=== PATIENT | male | born 1950 | race Caucasian/White ===

== ENCOUNTER 2016-09-01 15:56 | Emergency (ER) | payer MEDICARE, MEDICAID ==
[2016-09-01] MEDS ORDERED: SULFAMETH/TRIMETH DS 800/160 MG TABLET PO STA (16:35)
[2016-09-01] MEDS ORDERED: MUPIROCIN 2% OINT 1 GM TOP STA (16:37)
[2016-09-01] MEDS ORDERED: SULFAMETH/TRIMETH DS 800/160 MG TABLET PO ONE (17:10)
[2016-09-01] MEDS ORDERED: MUPIROCIN 2% OINT 1 GM ONE (17:10)
== END 2016-09-01 18:26 | disposition home or self-care (01) ==
DX: S80.12XA Contusion of left lower leg, initial encounter (principal); W05.0XXA Fall from non-moving wheelchair, initial encounter; Y92.019 Unspecified place in single-family (private) house as the place of occurrence of the external cause; L03.116 Cellulitis of left lower limb; I73.9 Peripheral vascular disease, unspecified; J44.9 Chronic obstructive pulmonary disease, unspecified; Z98.84 Bariatric surgery status; F17.200 Nicotine dependence, unspecified, uncomplicated
CPT/HCPCS: 73610; 73630; 81003; 87070; 87077; 87181; 87205; 99283; A9270

== ENCOUNTER 2016-09-14 10:48 | Outpatient (CLI) | payer MEDICARE, MEDICAID | END 2016-09-14 10:49 | disposition home or self-care (01) | DX: Z11.59 Encounter for screening for other viral diseases (principal) ==

== ENCOUNTER 2016-10-10 13:15 | Outpatient (CLI) | payer MEDICARE, MEDICAID | END 2016-10-10 13:16 | disposition critical access hospital (66) | LOC: EMS 13:15 | PROVIDERS: ATTEND Surgery | DX: R41.82 Altered mental status, unspecified (principal) | CPT/HCPCS: A0425; A0429 ==

== ENCOUNTER 2016-10-10 13:59 | Inpatient (IN) | payer MEDICARE, MEDICAID ==
[2016-10-10] MEDS ORDERED: SODIUM CHLORIDE 0.9% 1,000 ML IV ONE (14:10)
[2016-10-10] MEDS ORDERED: fentaNYL 100 MCG/2 ML VIAL IVP STA (14:10)
--- NOTE | 2016-10-10 14:15 | ED Physician Documentation ---
PD HPI FOCAL NEURO - Stated complaint Stated Complaint: AMS - Chief complaint Chief Complaint: Neuro - History obtained from History obtained from: EMS - History of Present Illness Timing - onset: Other (66-year-old gentleman presents by ambulance for altered mental status. He is unable to give any history. Per the chart he has a history of tonsillar cancer and referral vascular disease, he is a smoker, maintained on baclofen, gabapentin. Seen about a month ago for a foot infection and placed on antibiotics, at that time he was documented to be alert and oriented x3 per report he lives in a trailer and complained of back pain to his neighbors yesterday. Today he was just screaming and the ambulance was summoned. He was noted to have a blood sugar of 53 and administered D50 which brought his blood sugar up to nearly 300 without change in neurologic status.) Review of Systems Unable to obtain: Confused PD PAST MEDICAL HISTORY - Past Medical History Cardiovascular: Peripheral Vascular Disease Respiratory: COPD Neuro: None Endocrine/Autoimmune: None GI: Other : Frequency HEENT: Other Psych: Depression, Anxiety Musculoskeletal: None Derm: None - Past Surgical History Past Surgical History: Yes General: Gastric surgery Ortho: Spine surgery, Amputation HEENT: Other - Present Medications Home Medications: Ambulatory Orders Medication Instructions Recorded Confirmed Baclofen 10 mg PO TID PRN 03/14/13 10/10/16 Atorvastatin [Lipitor] 10 mg ORAL DAILY 11/17/14 03/20/15 Gabapentin 300 mg PO TID 11/17/14 10/10/16 Levothyroxine [Synthroid] 75 mcg PO QDAC 11/17/14 03/20/15 Lisinopril [Zestril] 10 mg ORAL DAILY 11/17/14 03/20/15 Ibuprofen 400 mg PO TID 03/20/15 10/10/16 Citalopram [CeleXA] 20 mg PO DAILY 09/01/16 10/10/16 Famotidine [Pepcid] 20 mg DAILY 10/10/16 10/10/16 Omeprazole 20 mg DAILY 10/10/16 10/10/16 Tiotropium [place] [Spiriva] 10/10/16 - Allergies Allergies/Adverse Reactions: Allergies Allergy/AdvReac Type Severity Reaction Status Date / Time No Known Drug Allergies Allergy Verified 11/17/14 17:47 - Social History Does the pt smoke?: Yes Smoking Status: Current every day smoker Does the pt drink ETOH?: Yes Does the pt have substance abuse?: Yes - Immunizations Immunizations are current?: Yes PD ED PE NORMAL - Vitals Vital signs reviewed: Yes - General General: Other (He is alert and makes eye contact but is nonverbal with the exception of screamin "ow." He does not follow commands. He is thin and has a right below-knee amputation. The left foot is cold with a small ulcer on the top of it at doesn't appear acutely infected. Asked the R.N. to see if she could Doppler pulses in it.) - HEENT HEENT: PERRL, Other (Abnormality of the right posterior oropharynx consistent with prior cancer.) - Neck Neck: Supple, no meningeal sign, No bony TTP - Cardiac Cardiac: RRR, No murmur - Respiratory Respiratory: No respiratory distress, Other (Rhonchorous throughout with a wet cough) - Abdomen Abdomen: Soft, Non tender, Other (Left upper quadrant lesion from prior G-tube) - Back Back: No CVA TTP, No spinal TTP - Derm Derm: Normal color, Warm and dry - Extremities Extremities: No deformity, No tenderness to palpate - Neuro Neuro: Other (Screaming, non-consolable, seems to move all 4 extremities.) Results - Vitals Vitals: Vital Signs - 24 hr 10/10/16 10/10/16 10/10/16 14:02 14:13 14:14 Temperature 36.8 C Heart Rate 94 Respiratory 20 Rate Blood Pressure 153/91 H 153/91 H O2 Saturation 93 10/10/16 10/10/16 10/10/16 14:57 15:37 16:08 Temperature Heart Rate 92 74 83 Respiratory 20 18 20 Rate Blood Pressure 119/73 113/86 H 128/73 O2 Saturation 98 95 95 10/10/16 16:51 Temperature Heart Rate 85 Respiratory 16 Rate Blood Pressure 124/77 O2 Saturation 93 Oxygen O2 Source Simple Mask - EKG (time done) 1429 Rate: Rate (enter#) (71) Rhythm: NSR [place]: Normal Intervals: Normal [place] QRS: Normal Ischemia: Normal ST segments Computer interpretation: Agree with computer - Labs Labs: Laboratory Tests 10/10/16 10/10/16 10/10/16 14:40 14:40 14:40 WBC 4.0 L RBC 4.29 L Hgb 14.1 Hct 42.3 MCV 98.7 H MCH 32.8 H MCHC 33.2 RDW 16.2 H Plt Count 239 MPV 7.2 L Neut # 2.7 Lymph # 0.6 L [place] # 0.6 Eos # 0.0 Baso # 0.1 Absolute Nucleated RBC 0.00 Nucleated RBCs 0.0 PT 9.8 L INR 0.9 APTT 26.1 Sodium 137 Potassium 3.8 Chloride 102 Carbon Dioxide 23 Anion Gap 12.0 BUN 27 H Creatinine 1.2 Estimated GFR (MDRD) 61 L Glucose 121 H Calcium 8.8 Magnesium 1.2 L Total Bilirubin 0.8 AST 16 ALT < 10 L Alkaline Phosphatase 69 Ammonia Total Creatine Kinase 101 CK-MB (CK-2) Troponin I Total Protein 7.7 Albumin 3.6 Globulin 4.1 Albumin/Globulin Ratio 0.9 L Lipase 41 TSH Thyroxine (T4) Free T3 pg/mL Cortisol Urine Color Urine Clarity Urine pH Ur Specific [place] Urine Protein Urine Glucose (UA) Urine Ketones Urine Occult Blood Urine Nitrite Urine Bilirubin Urine Urobilinogen Ur Leukocyte Esterase Ur Microscopic Review Urine Culture Comments Salicylates < 6.0 Urine Opiates Screen Ur Oxycodone Screen Urine Methadone Screen Ur Propoxyphene Screen Acetaminophen < 10 L Ur Barbiturates Screen Ur Tricyclics Screen Ur Phencyclidine Scrn Ur Amphetamine Screen U Methamphetamines Scrn U Benzodiazepines Scrn Urine Cocaine Screen U Cannabinoids Screen Ethyl Alcohol < 5.0 10/10/16 10/10/16 10/10/16 14:40 14:40 14:40 WBC RBC Hgb Hct MCV MCH MCHC RDW Plt Count MPV Neut # Lymph # [place] # Eos # Baso # Absolute Nucleated RBC Nucleated RBCs PT INR APTT Sodium Potassium Chloride Carbon Dioxide Anion Gap BUN Creatinine Estimated GFR (MDRD) Glucose Calcium Magnesium Total Bilirubin AST ALT Alkaline Phosphatase Ammonia Total Creatine Kinase CK-MB (CK-2) 5.2 Troponin I < 0.04 Total Protein Albumin Globulin Albumin/Globulin Ratio Lipase TSH 118.00 H Thyroxine (T4) 3.75 L Free T3 pg/mL Cortisol 19.2 Urine Color Urine Clarity Urine pH Ur Specific [place] Urine Protein Urine Glucose (UA) Urine Ketones Urine Occult Blood Urine Nitrite Urine Bilirubin Urine Urobilinogen Ur Leukocyte Esterase Ur Microscopic Review Urine Culture Comments Salicylates Urine Opiates Screen Ur Oxycodone Screen Urine Methadone Screen Ur Propoxyphene Screen Acetaminophen Ur Barbiturates Screen Ur Tricyclics Screen Ur Phencyclidine Scrn Ur Amphetamine Screen U Methamphetamines Scrn U Benzodiazepines Scrn Urine Cocaine Screen U Cannabinoids Screen Ethyl Alcohol 10/10/16 10/10/16 10/10/16 14:40 15:19 15:30 WBC RBC Hgb Hct MCV MCH MCHC RDW Plt Count MPV Neut # Lymph # [place] # Eos # Baso # Absolute Nucleated RBC Nucleated RBCs PT INR APTT Sodium Potassium Chloride Carbon Dioxide Anion Gap BUN Creatinine Estimated GFR (MDRD) Glucose Calcium Magnesium Total Bilirubin AST ALT Alkaline Phosphatase Ammonia 9.0 Total Creatine Kinase CK-MB (CK-2) Troponin I Total Protein Albumin Globulin Albumin/Globulin Ratio Lipase TSH Thyroxine (T4) Free T3 pg/mL 2.26 L Cortisol Urine Color YELLOW Urine Clarity CLEAR Urine pH 5.5 Ur Specific [place] 1.025 Urine Protein NEGATIVE Urine Glucose (UA) 100 H Urine Ketones TRACE Urine Occult Blood NEGATIVE Urine Nitrite NEGATIVE Urine Bilirubin NEGATIVE Urine Urobilinogen 0.2 (NORMAL) Ur Leukocyte Esterase NEGATIVE Ur Microscopic Review NOT INDICATED Urine Culture Comments NOT INDICATED Salicylates Urine Opiates Screen NEGATIVE Ur Oxycodone Screen NEGATIVE Urine Methadone Screen NEGATIVE Ur Propoxyphene Screen NEGATIVE Acetaminophen Ur Barbiturates Screen NEGATIVE Ur Tricyclics Screen NEGATIVE Ur Phencyclidine Scrn NEGATIVE Ur Amphetamine Screen NEGATIVE U Methamphetamines Scrn NEGATIVE U Benzodiazepines Scrn NEGATIVE Urine Cocaine Screen NEGATIVE U Cannabinoids Screen POSITIVE H Ethyl Alcohol - Rads (name of study) CT Head Radiology: EMP read contemporaneously (NAD) 1v Chest Radiology: EMP read contemporaneously (upper lobe infiltrates on chronic lung dz ) Procedures - Lumbar Puncture Position: Laying left side Location: Midline approach, Other Other: Sterile prep and drape, Patient tolerated well, Other (unsuccessful) PD MEDICAL DECISION MAKING - ED course ED course: 66-year-old gentleman presents with altered mental status of unclear cause, his vital signs are unremarkable. Required divided doses of medications for anxiolysis and cooperation. He does have pneumonia. He was cultured up. An LP was attempted, needed a couple doses of ketamine 2 help with that, the LP was unsuccessful. However there is no obvious clinical evidence of meningitis other than altered mental status. He was given Rocephin and vancomycin after blood cultures for pneumonia. Call to Dr. Silveira for admission at 445 p.[address]. [address] case [address] Dr. Silveira at 450 p.m., note made of very high TSH, T4 free T3 added on. After discussion with the hospitalist he is given 25 mcg of Synthroid IV, also his blood sugar was dropping again and started on D5. - Critical Care Time(min): 45 Time Includes: Direct patient care, Review records, Reassess patient, Document care, Coordinate care, Medical consult Data interpretation: Labs, Pulse ox Procedures included in critical care time: Peripheral IV Procedures excluded from critical care time: EKG Departure - Departure Disposition: [address] [facility] [facility] DC/Xfer Clinical Impression: Hypoglycemia Altered mental status Qualifiers: Altered mental status type: delirium Qualified Code(s): R41.0 - Disorientation , unspecified Hypothyroid Qualifiers: Hypothyroidism type: unspecified Qualified Code(s): E03.9 - Hypothyroidism, unspecified Pneumonia Qualifiers: Pneumonia type: due to unspecified organism Laterality: bilateral Lung location : upper lobe of lung Qualified Code(s): J18.9 - Pneumonia, unspecified organism Condition: Serious Discharge Date/Time: 10/10/16 18:09
[2016-10-10] MEDS ORDERED: fentaNYL 100 MCG/2 ML VIAL ONE (14:24)
[2016-10-10] MEDS ORDERED: LORazepam 2 MG/ML SYRINGE IVP STA ×2 (14:52→15:05)
[2016-10-10] MEDS ORDERED: LORazepam 2 MG/ML SYRINGE ONE ×2 (14:54→15:06)
[2016-10-10 14:57] LABS: BASOPHILS # (AUTO) 0.1 10^3/uL (0.0-0.1); BASOPHILS % (AUTO) 1.4 %; HCT - HEMATOCRIT 42.3 % (42.0-52.0); HGB - HEMOGLOBIN 14.1 g/dL (14.0-18.0); LYMPHOCYTES # (AUTO) 0.6 10^3/uL (1.5-3.5); LYMPHOCYTES % (AUTO) 14.2 %; MEAN CORPUSCULAR HEMOGLOBIN 32.8 pg (27.0-31.0); MEAN CORPUSCULAR HGB CONC 33.2 g/dL (32.0-36.0); MEAN CORPUSCULAR VOLUME 98.7 fL (80.0-94.0); MEAN PLATELET VOLUME 7.2 fL (7.4-11.4); MONOCYTES # (AUTO) 0.6 10^3/uL (0.0-1.0); MONOCYTES % (AUTO) 15.9 %; NEUTROPHILS # (AUTO) 2.7 10^3/uL (1.5-6.6); NEUTROPHILS % (AUTO) 67.5 %; RED BLOOD COUNT 4.29 10^6/uL (4.70-6.10); RED CELL DISTRIBUTION WIDTH 16.2 % (12.0-15.0)
[2016-10-10 15:10] LABS: INR 0.9 (0.8-1.2); PT - PROTHROMBIN TIME 9.8 secs (9.9-12.6)
[2016-10-10 15:14] LABS: ALBUMIN/GLOBULIN RATIO 0.9 (1.0-2.2); BILIRUBIN,TOTAL 0.8 mg/dL (0.2-1.0); BUN - BLOOD UREA NITROGEN 27 mg/dL (6-20); CALCIUM 8.8 mg/dL (8.5-10.3); CARBON DIOXIDE - CO2 23 mmol/L (21-32); CHLORIDE 102 mmol/L (101-111); CREATININE 1.2 mg/dL (0.6-1.2); GFR - MDRD 61 (>89); GLUCOSE 121 mg/dL (70-100); LIPASE 41 U/L (22-51); MAGNESIUM 1.2 mg/dL (1.7-2.8); POTASSIUM 3.8 mmol/L (3.5-5.0); SALICYLATE < 6.0 mg/dL; SODIUM 137 mmol/L (135-145); TOTAL PROTEIN 7.7 g/dL (6.7-8.2)
[2016-10-10 15:17] LABS: PARTIAL THROMBOPLASTIN TIME 26.1 secs (24.9-33.3)
[2016-10-10 15:18] LABS: ACETAMINOPHEN < 10 ug/mL (10-30); CREATINE KINASE MB 5.2 ng/mL (0.6-6.3); TROPONIN I < 0.04 ng/mL (<0.49)
[2016-10-10 15:45] LABS: BILIRUBIN,URINE NEGATIVE (NEGATIVE); PH,URINE 5.5 PH (5.0-7.5)
--- NOTE | 2016-10-10 15:45 | XRAY Preliminary Report ---
Exam: XR Chest 1 View IMPRESSION: Patchy upper lobe infiltrates, superimposed upon emphysema. [facility] SITE ID: [id number]
[2016-10-10 15:46] LABS: UA CHARGE (STRIP ONLY) YES; UR CULTURE IF IND NOT INDICATED
--- NOTE | 2016-10-10 15:47 | XRAY Report ---
EXAM: CHEST RADIOGRAPHY EXAM DATE: 10/10/2016 03:30 PM. CLINICAL HISTORY: Cough. COMPARISON: 11/02/2014. TECHNIQUE: 1 view. FINDINGS: Lungs/Pleura: Emphysema is again noted. There are patchy upper lobe infiltrates, new from previous. Mediastinum: Within exam limitations, cardiomediastinal contour is normal. Other: None. IMPRESSION: Patchy upper lobe infiltrates, superimposed upon emphysema. [facility] Referring Provider Line: [phone] SITE ID: [id number]
[2016-10-10] MEDS ORDERED: KETAMINE 500 MG/10 ML VIAL ONE ×2 (16:02→16:12)
[2016-10-10] MEDS: KETAMINE 500 MG/10 ML VIAL IVP STA ×2 (16:05→16:16)
[2016-10-10] MEDS ORDERED: VANCOMYCIN INJ 1 GM in SODIUM CHLORIDE 0.9% 250 ML IV STA (16:33)
[2016-10-10] MEDS ORDERED: cefTRIAXone 2 GM in SODIUM CHLORIDE 0.9% MINIBAG 100 ML IV STA (16:33)
[2016-10-10] MEDS ORDERED: cefTRIAXone 2 GM VIAL ONE (16:38)
[2016-10-10] MEDS ORDERED: SODIUM CHLORIDE 0.9% MINIBAG 100 ML IV ONE (16:38)
--- NOTE | 2016-10-10 16:48 | CT Preliminary Report ---
Exam: CT Head W/O IMPRESSION: Normal head CT. [facility] SITE ID: [id number]
--- NOTE | 2016-10-10 16:50 | CT Report ---
EXAM: CT HEAD EXAM DATE: 10/10/2016 03:47 PM. CLINICAL HISTORY: Altered mental status. COMPARISON: 11/02/2014. TECHNIQUE: Multiaxial CT images were obtained from the foramen magnum to the vertex. IV contrast: Non e. Reformats: Coronal. In accordance with CT protocol optimization, one or more of the following dose reduction techniques w ere utilized for this exam: automated exposure control, adjustment of mA and/or KV based on patient s ize, or use of iterative reconstructive technique. FINDINGS: Parenchyma: No intraparenchymal hemorrhage. No evidence of mass, midline shift, or CT findings of inf arction. Yan-white differentiation is distinct. Extraaxial Spaces: Normal for age. No subdural or epidural collections identified. Ventricles: Normal in size and position. Sinuses: Imaged paranasal sinuses, orbits, and mastoids show no significant abnormality. Bones: No evidence of fracture or calvarial defect. Other: None. IMPRESSION: Normal head CT. [facility] Referring Provider Line: [phone] SITE ID: [id number]
[2016-10-10] MEDS ORDERED: LEVOTHYROXINE 100 MCG VIAL IVP STA (16:52)
[2016-10-10] MEDS ORDERED: DEXTROSE 5%-0.45% NACL 1,000 ML IV ONE (16:52)
[2016-10-10] MEDS ORDERED: OLANZapine 10 MG VIAL IM STA (16:59)
[2016-10-10] MEDS ORDERED: OLANZapine 10 MG VIAL IM ONE (17:03)
[2016-10-10] MEDS ORDERED: WATER FOR INJECTION,STERILE 10 ML ONE (17:04)
[2016-10-10] MEDS ORDERED: HYDROmorphone 1 MG/ML SYRINGE IVP PRN (17:07)
[2016-10-10] MEDS ORDERED: cefTRIAXone 500 MG VIAL IVP STA (17:07)
[2016-10-10] MEDS ORDERED: ONDANSETRON 4 MG/2 ML VIAL IVP PRN (17:07)
[2016-10-10] MEDS ORDERED: NICOTINE 21 MG PATCH TOP SCH (17:07)
[2016-10-10] MEDS ORDERED: SODIUM CHLORIDE 0.9% 250 ML IV ONE (17:11)
[2016-10-10] MEDS ORDERED: VANCOMYCIN 1 GM VIAL ONE (17:11)
[2016-10-10 17:24] LABS: CORTISOL 19.2 ug/dL
[2016-10-10] MEDS ORDERED: cefTRIAXone 2 GM in SODIUM CHLORIDE 0.9% MINIBAG 100 ML IV SCH (18:00)
[2016-10-10] MEDS ORDERED: VANCOMYCIN PER PHARMACY 1 GM in SODIUM CHLORIDE 0.9% 250 ML IV SCH (18:00)
[2016-10-10] MEDS: PANTOPRAZOLE 40 MG VIAL IVP SCH (19:54)
[2016-10-10] MEDS: D5NS W/20 MEQ KCL 1,000 ML IV SCH (19:58)
[2016-10-10] MEDS: SODIUM CHLORIDE FLUSH 0.9% 10 ML SYRINGE IVP SCH (20:02)
[2016-10-10] MEDS: MAGNESIUM SULFATE 2 GRAM 50 ML IV SCH ×2 (20:32→21:21)
[2016-10-10] MEDS ORDERED: SODIUM CHLORIDE 0.9% 500 ML IV ONE (20:56)
[2016-10-10] MEDS: KETOROLAC 15 MG/ML VIAL IVP PRN (23:43)
[2016-10-11] MEDS: HYDROmorphone 1 MG/ML SYRINGE IVP PRN ×5 (00:58→17:12)
[2016-10-11 05:12] LABS: BASOPHILS % (AUTO) 0.4 %; EOSINOPHILS # (AUTO) 0.1 10^3/uL (0.0-0.7); EOSINOPHILS % (AUTO) 0.6 %; HCT - HEMATOCRIT 44.1 % (42.0-52.0); HGB - HEMOGLOBIN 14.2 g/dL (14.0-18.0); LYMPHOCYTES # (AUTO) 0.6 10^3/uL (1.5-3.5); LYMPHOCYTES % (AUTO) 5.5 %; MEAN CORPUSCULAR HEMOGLOBIN 32.5 pg (27.0-31.0); MEAN CORPUSCULAR HGB CONC 32.2 g/dL (32.0-36.0); MEAN PLATELET VOLUME 7.2 fL (7.4-11.4); MONOCYTES # (AUTO) 1.2 10^3/uL (0.0-1.0); MONOCYTES % (AUTO) 11.6 %; NEUTROPHILS # (AUTO) 8.5 10^3/uL (1.5-6.6); NEUTROPHILS % (AUTO) 81.9 %; RED BLOOD COUNT 4.37 10^6/uL (4.70-6.10); RED CELL DISTRIBUTION WIDTH 16.7 % (12.0-15.0); UNCORRECTED WHITE BLOOD COUNT 10.4 x10^3/uL; WHITE BLOOD COUNT 10.4 x10^3/uL (4.8-10.8)
[2016-10-11 05:21] LABS: ALBUMIN/GLOBULIN RATIO 0.8 (1.0-2.2); BILIRUBIN,TOTAL 0.5 mg/dL (0.2-1.0); BUN - BLOOD UREA NITROGEN 24 mg/dL (6-20); CALCIUM 8.4 mg/dL (8.5-10.3); CARBON DIOXIDE - CO2 21 mmol/L (21-32); CHLORIDE 111 mmol/L (101-111); CREATININE 1.1 mg/dL (0.6-1.2); GFR - MDRD 67 (>89); GLUCOSE 113 mg/dL (70-100); MAGNESIUM 2.3 mg/dL (1.7-2.8); PHOSPHORUS 3.3 mg/dL (2.5-4.6); SODIUM 139 mmol/L (135-145)
[2016-10-11] MEDS: D5NS W/20 MEQ KCL 1,000 ML IV SCH ×2 (05:54→14:23)
[2016-10-11] MEDS: SODIUM CHLORIDE FLUSH 0.9% 10 ML SYRINGE IVP SCH ×3 (05:56→20:47)
[2016-10-11] MEDS: PANTOPRAZOLE 40 MG VIAL IVP SCH (06:08)
[2016-10-11] MEDS: LEVOTHYROXINE 100 MCG VIAL IVP SCH (06:14)
[2016-10-11] MEDS ORDERED: SODIUM CHLORIDE 0.9% 1,000 ML IV ONE ×2 (06:37→15:02)
--- NOTE | 2016-10-11 07:33 | HISTORY & PHYSICAL EXAMINATION ---
DATE OF ADMISSION: 10/10/2016 PRIMARY CARE PHYSICIAN: PAULA Willoughby CHIEF COMPLAINT: Altered mental status. IDENTIFYING INFORMATION: The patient is a 66-year-old gentleman who is unable to give any history, as he is moaning or screaming and unresponsive. The patient 's history is obtained from the handoff from the emergency department physician , Dr. Almonte, as well as personal review of past medical records and the data collected during this visit. The patient's examination was also used in the evaluation of this person in preparation of this document. The patient's history is that he was seen yesterday, seemed to be not having difficulty, was interactive. He was heard to be yelling today and found at home not responding, and he was brought in by EMS after evaluation. REVIEW OF SYSTEMS: Unable to obtain. PAST MEDICAL HISTORY 1. He has peripheral vascular disease. 2. COPD. 3. Tonsillar cancer. 4. Depression. 5. Anxiety. 6. Hyperlipidemia. 7. Hypothyroidism. 8. Gastroesophageal reflux disease. PAST SURGICAL HISTORY 1. Gastric surgery. 2. Spine surgery. 3. AKA of right leg. 4. Neck surgery. 5. Tympanic membrane replacement. 6. PEG tube. ALLERGIES: NONE KNOWN. MEDICATIONS 1. Baclofen 10 mg 3 times a day. 2. Lipitor 10 mg a day. 3. Gabapentin 300 mg a day. 4. Levoxyl 75 mcg a day. 5. Zestril 10 mg a day. 6. Ibuprofen 10 mg t.i.d. 7. Celexa 20 mg a day. 8. Pepcid 20 mg a day. 9. Omeprazole 20 mg a day. 10. Spiriva 18 mcg once a day. PERSONAL/SOCIAL HISTORY: He lives alone. Very sketchy details. PHYSICAL EXAMINATION VITAL SIGNS: 36.8, 94, 20, 153/91, 93% nasal cannula. GENERAL: The patient's eyes are closed. He does not open his eyes. He at times when his name is called, stops yelling or saying "ow" incessantly. CONSTITUTIONAL: He is extremely underweight, has very little subcutaneous tissue. The patient moves his extremities, but there is no response such as response to physical stimuli to locate or protect himself. EYES: Unable to assess EOM. There is no icterus. MOUTH AND THROAT: Poorly seen. Appears to be dry mucous membranes and very poor dentition. NECK: No lymphadenopathy, no thyromegaly, no tracheal deviation, or JVD noted. CHEST WALL: Very emaciated appearing, also of muscle and subcutaneous tissue, but symmetric. HEART: Sinus rhythm, no murmur, rubs, clicks heard. LUNGS: Appear clear. ABDOMEN: Flat. No pain response, but obviously with his condition, unable to further assess. RECTAL/GENITAL: Not done. EXTREMITIES: The patient has the AKA noted below. He has coolness of the left lower extremity, but there are pulses recorded Doppler. LABORATORY DATA: White count of 4.0, 14 and 42 hemoglobin and hematocrit, platelets are 239, he has INR 0.9. His PTT is 26. Sodium is 136, potassium 3.8, chloride 102, CO2 of 23, BUN 27, creatinine is 1.2. The patient's glucose 121, his calcium is 8.8. Normal liver enzymes. He has albumin of 3.6. The patient's aspirin level less than 6.0. Tylenol level less than 10. Alcohol level less than 5. The patient's ammonia level is 9. Troponin is less than 0.04. His TSH is 118. His urine is negative. Urine drug screen is positive only for cannabinoids. SUMMARY: This is a 66-year-old gentleman who was found in a coma, unresponsive without an obvious etiology. He has a past medical history of tonsillar cancer, peripheral vascular disease, hypercholesterolemia, hypothyroidism, and hypertension. DIAGNOSES 1. Coma, undetermined etiology. 2. 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 3. Dehydration. 4. Suspect meningitis. 5. Hypercholesterolemia. 6. Peripheral vascular disease. 7. Hypothyroid, severely noncompliant. DISCUSSION/DECISION MAKING 1. The patient will be treated with Levoxyl in case this is myxedema coma. The patient will also be rehydrated, observed. He has already had a head CT scan which was negative. 2. Myxedema coma, see the workup in #1. 3. Dehydration. He will be given fluids and other replacements as needed. 4. Suspect meningitis. There was attempt to do a spinal tap, but given his spinal surgery, was unsuccessful. Started on vancomycin and Rocephin. The patient's hypercholesterolemia will not be treated presently as the patient will be n.p.o. HOSPITAL ISSUES 1. CODE status unknown. Therefore, he is FULL CODE. 2. VTE thrombosis prophylaxis will be enoxaparin. 3. Diet will be n.p.o. 4. Activity will be bed rest until further improvement. 5. Lines. He will have a [place] catheter, peripheral IV. 6. With diagnosis of a coma and suspecting the meningitis and/or myxedema coma, he will be inpatient status, staying at least 2 nights. 7. Expected length of stay is 4 night. 8. Disposition, which is uncertain at this time given the critical condition. Time spent in critical care 65 minutes with repeat evaluations, review of his studies. consulting with emergency department physician and the ICU staff. JOB #: [id number] EXT JOB #:[id number] JAIDEN
--- NOTE | 2016-10-11 07:54 | PROVIDER PROGRESS NOTE ---
Assessment/Plan - Problem List (1) Hypothyroid Qualifiers: Hypothyroidism type: unspecified Qualified Code(s): E03.9 - Hypothyroidism , unspecified Assessment/Plan: He has profound hypothyroidism. Not clear if this is the etiology of his coma. Since he has now awake, It is unlikely. He is getting IV levoxyl for the moment. When transitioned to oral will give po. (2) Coma Assessment/Plan: He is now awake opens eyes to verbal stimulus. He is intermitantly following commands. He is still repetitively saying "OW" Will continue to monitor and attempt to further delineate the etiology of his coma. Also his cortisol is nml. (3) Pneumonia Qualifiers: Pneumonia type: due to unspecified organism Laterality: bilateral Lung location: upper lobe of lung Qualified Code(s): J18.9 - Pneumonia, unspecified organism Assessment/Plan: His CXR displays new upper lobe Bilateral infiltrates. Will add Azith to antibx for the meningitis which is now less likely. Pneumonia does not explain the Coma etiology. May be secondary to aspiration that happened while comatose. - Current Meds Current Meds: Current Medications Generic Name Dose Route Start Last Admin Trade Name Freq PRN Reason Stop Dose Admin Hydromorphone HCl 0.5 mg 10/10/16 20:56 10/11/16 04:57 Dilaudid Inj IVP 0.5 mg Q2HR PRN Administration Pain 8 to 10 Potassium Chloride/Dextrose/Sod Cl 1,000 mls @ 100 mls/hr 10/10/16 18:00 05:54 IV 100 mls/hr .Q10H POOJA Administration Ketorolac Tromethamine 15 mg 10/10/16 20:56 10/10/16 23:43 Toradol Inj IVP 10/15/16 20:55 15 mg Q6HR PRN Administration PAIN Levothyroxine Sodium 25 mcg 10/11/16 07:00 10/11/16 06:14 Synthroid Inj IVP 25 mcg QDAC POOJA Administration Pantoprazole Sodium 40 mg 10/10/16 18:00 10/11/16 06:08 Protonix IVP 40 mg QDAC POOJA Administration Sodium Chloride 10 ml 10/10/16 22:00 10/11/16 05:56 Normal Saline Flush 0.9% IVP 10 ml Q8HR POOJA Administration - Lab Result Fish Bone Diagrams: 10/11/16 05:00 10/11/16 05:00 - Additional Planning My Orders: My Active Orders 10/10/16 17:48 RT [Nebulizer/MDI Tx.] [RC] QID 10/11/16 05:00 FOLATE [IAI] Routine VITAMIN B12 [IAI] Routine 10/11/16 17:00 Vancomycin Inj [Vancomycin] 0.75 gm Sodium Chloride 0.9% [Normal Saline 0.9%] 250 ml IV Q24H Subjective - Subjective Patient Reports: Pain Nursing Reports: Confused, Pain Objective Vital Signs: Vital Signs - 24 hr 10/10/16 10/10/16 10/10/16 17:23 17:30 18:46 Temperature 36.6 C Heart Rate 85 Heart Rate [ 74 68 Monitoring electrodes] Respiratory 20 22 21 Rate Blood Pressure 119/66 Blood Pressure 153/66 H 153/71 H [Brachial artery] Blood Pressure [Right Brachial artery] O2 Saturation 93 96 100 10/10/16 10/10/16 10/10/16 19:00 20:00 21:00 Temperature Heart Rate 68 Heart Rate [ 71 67 Monitoring electrodes] Respiratory 20 18 16 Rate Blood Pressure Blood Pressure 120/64 94/53 L [Brachial artery] Blood Pressure [Right Brachial artery] O2 Saturation 99 100 10/10/16 10/10/16 10/11/16 22:00 23:00 00:00 Temperature 36.2 C L 36.1 C L Heart Rate Heart Rate [ 75 79 73 Monitoring electrodes] Respiratory 15 15 15 Rate Blood Pressure Blood Pressure 113/58 L 140/73 H 136/74 H [Brachial artery] Blood Pressure [Right Brachial artery] O2 Saturation 98 98 100 10/11/16 10/11/16 10/11/16 01:00 02:00 03:00 Temperature Heart Rate Heart Rate [ 80 74 77 Monitoring electrodes] Respiratory 16 15 16 Rate Blood Pressure Blood Pressure 96/67 104/71 105/72 [Brachial artery] Blood Pressure [Right Brachial artery] O2 Saturation 100 100 100 10/11/16 10/11/16 10/11/16 04:00 04:45 05:45 Temperature 36.2 C L Heart Rate Heart Rate [ 75 95 69 Monitoring electrodes] Respiratory 15 21 14 Rate Blood Pressure Blood Pressure 107/68 [Brachial artery] Blood Pressure 126/76 87/51 L [Right Brachial artery] O2 Saturation 100 100 100 10/11/16 06:45 Temperature Heart Rate Heart Rate [ 87 Monitoring electrodes] Respiratory 17 Rate Blood Pressure Blood Pressure [Brachial artery] Blood Pressure 102/61 [Right Brachial artery] O2 Saturation 100 Oxygen O2 Source Nasal cannula I&O (Last 24 Hrs): Intake and Output Totals x24h 10/09/16 10/10/16 10/11/16 23:59 23:59 23:59 Intake Total 1666 700 Output Total 195 175 Balance 1471 525 General: Alert, Mild distress HEENT: PERRLA, EOMI Neck: Supple, No thyromegaly Neuro: Alert, Disoriented, Speech Slurred Cardiovascular: Regular rate, No murmurs Respiratory: Chest non-tender, No respiratory distress, Breath sounds nml Abdomen: Soft, No tenderness Extremities: No clubbing, No cyanosis Skin: No rashes - Results Results: Laboratory Results WBC 10.4 x10^3/uL (4.8-10.8) 10/11/16 05:00 RBC 4.37 10^6/uL (4.70-6.10) L 10/11/16 05:00 Hgb 14.2 g/dL (14.0-18.0) 10/11/16 05:00 Hct 44.1 % (42.0-52.0) 10/11/16 05:00 MCV 101.0 fL (80.0-94.0) H 10/11/16 05:00 MCH 32.5 pg (27.0-31.0) H 10/11/16 05:00 MCHC 32.2 g/dL (32.0-36.0) 10/11/16 05:00 RDW 16.7 % (12.0-15.0) H 10/11/16 05:00 Plt Count 241 10^3/uL (130-450) 10/11/16 05:00 MPV 7.2 fL (7.4-11.4) L 10/11/16 05:00 Neut # 8.5 10^3/uL (1.5-6.6) H 10/11/16 05:00 Lymph # 0.6 10^3/uL (1.5-3.5) L 10/11/16 05:00 [place] # 1.2 10^3/uL (0.0-1.0) H 10/11/16 05:00 Eos # 0.1 10^3/uL (0.0-0.7) 10/11/16 05:00 Baso # 0.0 10^3/uL (0.0-0.1) 10/11/16 05:00 Absolute Nucleated RBC 0.00 x10^3/uL 10/11/16 05:00 Nucleated RBCs 0.0 /100WBC 10/11/16 05:00 PT 9.8 secs (9.9-12.6) L 10/10/16 14:40 INR 0.9 (0.8-1.2) 10/10/16 14:40 APTT 26.1 secs (24.9-33.3) 10/10/16 14:40 Sodium 139 mmol/L (135-145) 10/11/16 05:00 Potassium 4.0 mmol/L (3.5-5.0) 10/11/16 05:00 Chloride 111 mmol/L (101-111) 10/11/16 05:00 Carbon Dioxide 21 mmol/L (21-32) 10/11/16 05:00 Anion Gap 7.0 (6-13) 10/11/16 05:00 BUN 24 mg/dL (6-20) H 10/11/16 05:00 Creatinine 1.1 mg/dL (0.6-1.2) 10/11/16 05:00 Estimated GFR (MDRD) 67 (>89) L 10/11/16 05:00 Glucose 113 mg/dL (70-100) H 10/11/16 05:00 Lactic Acid 1.2 mmol/L (0.5-2.2) 10/10/16 23:14 Calcium 8.4 mg/dL (8.5-10.3) L 10/11/16 05:00 Phosphorus 3.3 mg/dL (2.5-4.6) 10/11/16 05:00 Magnesium 2.3 mg/dL (1.7-2.8) 10/11/16 05:00 Total Bilirubin 0.5 mg/dL (0.2-1.0) 10/11/16 05:00 AST 15 IU/L (10-42) 10/11/16 05:00 ALT < 10 IU/L (10-60) L 10/11/16 05:00 Alkaline Phosphatase 60 IU/L (42-121) 10/11/16 05:00 Ammonia 9.0 umol/L (7-35) 10/10/16 15:19 Total Creatine Kinase 101 IU/L (22-269) 10/10/16 14:40 CK-MB (CK-2) 5.2 ng/mL (0.6-6.3) 10/10/16 14:40 Troponin I < 0.04 ng/mL (<0.49) 10/10/16 19:45 Total Protein 7.0 g/dL (6.7-8.2) 10/11/16 05:00 Albumin 3.2 g/dL (3.2-5.5) 10/11/16 05:00 Globulin 3.8 g/dL (2.1-4.2) 10/11/16 05:00 Albumin/Globulin Ratio 0.8 (1.0-2.2) L 10/11/16 05:00 Lipase 41 U/L (22-51) 10/10/16 14:40 TSH 118.00 uIU/mL (0.34-5.60) H 10/10/16 14:40 Thyroxine (T4) 3.75 ug/dL (6.09-12.23) L 10/10/16 14:40 Free T3 pg/mL 2.26 pg/mL (2.5-3.9) L 10/10/16 14:40 Cortisol 19.2 ug/dL 10/10/16 14:40 Urine Color YELLOW 10/10/16 15:30 Urine Clarity CLEAR (CLEAR) 10/10/16 15:30 Urine pH 5.5 PH (5.0-7.5) 10/10/16 15:30 Ur Specific Kell 1.025 (1.002-1.030) 10/10/16 15:30 Urine Protein NEGATIVE mg/dL (NEGATIVE) 10/10/16 15:30 Urine Glucose (UA) 100 mg/dL (NEGATIVE) H 10/10/16 15:30 Urine Ketones TRACE mg/dL (NEGATIVE) 10/10/16 15:30 Urine Occult Blood NEGATIVE (NEGATIVE) 10/10/16 15:30 Urine Nitrite NEGATIVE (NEGATIVE) 10/10/16 15:30 Urine Bilirubin NEGATIVE (NEGATIVE) 10/10/16 15:30 Urine Urobilinogen 0.2 (NORMAL) E.U./dL (NORMAL) 10/10/16 15:30 Ur Leukocyte Esterase NEGATIVE (NEGATIVE) 10/10/16 15:30 Ur Microscopic Review NOT INDICATED 10/10/16 15:30 Urine Culture Comments NOT INDICATED 10/10/16 15:30 Salicylates < 6.0 mg/dL 10/10/16 14:40 Urine Opiates Screen NEGATIVE (NEGATIVE) 10/10/16 15:30 Ur Oxycodone Screen NEGATIVE (NEGATIVE) 10/10/16 15:30 Urine Methadone Screen NEGATIVE (NEGATIVE) 10/10/16 15:30 Ur Propoxyphene Screen NEGATIVE (NEGATIVE) 10/10/16 15:30 Acetaminophen < 10 ug/mL (10-30) L 10/10/16 14:40 Ur Barbiturates Screen NEGATIVE (NEGATIVE) 10/10/16 15:30 Ur Tricyclics Screen NEGATIVE (NEGATIVE) 10/10/16 15:30 Ur Phencyclidine Scrn NEGATIVE (NEGATIVE) 10/10/16 15:30 Ur Amphetamine Screen NEGATIVE (NEGATIVE) 10/10/16 15:30 U Methamphetamines Scrn NEGATIVE (NEGATIVE) 10/10/16 15:30 U Benzodiazepines Scrn NEGATIVE (NEGATIVE) 10/10/16 15:30 Urine Cocaine Screen NEGATIVE (NEGATIVE) 10/10/16 15:30 U Cannabinoids Screen POSITIVE (NEGATIVE) H 10/10/16 15:30 Ethyl Alcohol < 5.0 mg/dL 10/10/16 14:40 - Procedures Procedures: Procedures REPLACE GASTROSTOMY TUBE (03/14/13)
[2016-10-11 08:23] LABS: FOLATE 9.96 ng/mL (5.90 - >24.8)
[2016-10-11] MEDS: ENOXAPARIN 40 MG/0.4 ML SYRINGE SUBQ SCH (09:22)
[2016-10-11] MEDS: cefTRIAXone 2 GM in SODIUM CHLORIDE 0.9% MINIBAG 100 ML IV SCH (09:22)
[2016-10-11] MEDS: AZITHROMYCIN INJ 500 MG in SODIUM CHLORIDE 0.9% 250 ML IV SCH (10:03)
[2016-10-11] MEDS ORDERED: VANCOMYCIN INJ 0.75 GM in SODIUM CHLORIDE 0.9% 250 ML IV SCH (17:00)
[2016-10-11] MEDS: VANCOMYCIN INJ 1 GM in SODIUM CHLORIDE 0.9% 250 ML IV SCH (17:12)
[2016-10-11] MEDS ORDERED: ZIPRASIDONE 20 MG VIAL IM PRN (19:43)
[2016-10-11 20:30] LABS: ALBUMIN/GLOBULIN RATIO 0.9 (1.0-2.2); BILIRUBIN,TOTAL 0.4 mg/dL (0.2-1.0); CALCIUM 8.3 mg/dL (8.5-10.3); POTASSIUM 3.9 mmol/L (3.5-5.0); TOTAL PROTEIN 7.2 g/dL (6.7-8.2)
[2016-10-11] MEDS: LORazepam 2 MG/ML SYRINGE IVP PRN (20:56)
[2016-10-11] MEDS ORDERED: WATER FOR INJECTION,STERILE 10 ML ONE (20:59)
[2016-10-11] MEDS ORDERED: SODIUM CHLORIDE 0.9% 500 ML IV ONE (23:19)
[2016-10-12] MEDS: LORazepam 2 MG/ML SYRINGE IVP PRN ×3 (03:13→21:04)
[2016-10-12] MEDS: SODIUM CHLORIDE FLUSH 0.9% 10 ML SYRINGE IVP SCH ×3 (04:18→21:04)
[2016-10-12] MEDS: D5NS W/20 MEQ KCL 1,000 ML IV SCH ×3 (05:29→19:43)
[2016-10-12 05:45] LABS: BASOPHILS # (AUTO) 0.1 10^3/uL (0.0-0.1); BASOPHILS % (AUTO) 0.8 %; EOSINOPHILS # (AUTO) 0.1 10^3/uL (0.0-0.7); EOSINOPHILS % (AUTO) 1.4 %; HCT - HEMATOCRIT 44.9 % (42.0-52.0); HGB - HEMOGLOBIN 14.3 g/dL (14.0-18.0); LYMPHOCYTES # (AUTO) 0.4 10^3/uL (1.5-3.5); MEAN CORPUSCULAR HEMOGLOBIN 32.8 pg (27.0-31.0); MEAN CORPUSCULAR HGB CONC 31.8 g/dL (32.0-36.0); MEAN PLATELET VOLUME 7.4 fL (7.4-11.4); MONOCYTES # (AUTO) 0.8 10^3/uL (0.0-1.0); MONOCYTES % (AUTO) 9.6 %; NEUTROPHILS # (AUTO) 6.7 10^3/uL (1.5-6.6); NEUTROPHILS % (AUTO) 83.2 %; RED BLOOD COUNT 4.36 10^6/uL (4.70-6.10); RED CELL DISTRIBUTION WIDTH 17.2 % (12.0-15.0)
[2016-10-12 05:54] LABS: ALBUMIN/GLOBULIN RATIO 0.8 (1.0-2.2); BILIRUBIN,TOTAL 0.5 mg/dL (0.2-1.0); BUN - BLOOD UREA NITROGEN 16 mg/dL (6-20); CALCIUM 8.2 mg/dL (8.5-10.3); CARBON DIOXIDE - CO2 19 mmol/L (21-32); CHLORIDE 116 mmol/L (101-111); GFR - MDRD 75 (>89); GLUCOSE 108 mg/dL (70-100); MAGNESIUM 1.8 mg/dL (1.7-2.8); PHOSPHORUS 2.6 mg/dL (2.5-4.6); POTASSIUM 3.9 mmol/L (3.5-5.0); SODIUM 142 mmol/L (135-145); TOTAL PROTEIN 6.3 g/dL (6.7-8.2)
[2016-10-12 06:06] LABS: CALCIUM 8.2 mg/dL (8.5-10.3)
[2016-10-12 06:09] LABS: CALCIUM, IONIZED 1.14 mmol/L (1.15-1.33); VBG PH 7.169 (7.31-7.41)
[2016-10-12] MEDS: PANTOPRAZOLE 40 MG VIAL IVP SCH (06:37)
[2016-10-12] MEDS: LEVOTHYROXINE 100 MCG VIAL IVP SCH (06:37)
--- NOTE | 2016-10-12 07:38 | PROVIDER PROGRESS NOTE ---
Subjective - Prog Note Date Prog Note Date: 10/12/16 Prog Note Time: 07:38 - Subjective Subjective: he is becoming more alert, following requests. vocalizing normally as opposed to nonstop yelling or repetitive words. still at 200 cc/hr of NS. last ativan was at 3:13 am. Current Medications - Current Medications Current Medications: Active Medications Albuterol () 2.5 mg INH Q4HR PRN PRN Reason: Wheezing Enoxaparin Sodium (Lovenox) 40 mg SUBQ DAILY [facility] Last Admin: 10/11/16 09:22 Dose: 40 mg Hydromorphone HCl (Dilaudid Inj) 0.5 mg IVP Q2HR PRN PRN Reason: Pain 8 to 10 Last Admin: 10/11/16 17:12 Dose: 0.5 mg Potassium Chloride/Dextrose/Sod Cl () 1,000 mls @ 100 mls/hr IV .Q10H [facility] Last Admin: 10/12/16 05:29 Dose: 100 mls/hr Ceftriaxone Sodium 2 gm/ (Sodium Chloride) 100 mls @ 200 mls/hr IV DAILY [facility] Last Admin: 10/11/16 09:22 Dose: 200 mls/hr Vancomycin HCl 1 gm/ Sodium (Chloride) 250 mls @ 167 mls/hr IV Q24H [facility] Last Admin: 10/11/16 17:12 Dose: 167 mls/hr Azithromycin 500 mg/ Sodium (Chloride) 250 mls @ 250 mls/hr IV DAILY@1000 [facility] Last Admin: 10/11/16 10:03 Dose: 250 mls/hr Multivitamins 10 ml/ Thiamine HCl 100 mg/ Folic Acid 1 mg/Sodium Chloride 1, 011.2 mls @ 100 mls/hr IV DAILY [facility] Ketorolac Tromethamine (Toradol Inj) 15 mg IVP Q6HR PRN PRN Reason: PAIN Stop: 10/15/16 20:55 Last Admin: 10/10/16 23:43 Dose: 15 mg Levothyroxine Sodium (Synthroid Inj) 25 mcg IVP QDAC [facility] Last Admin: 10/12/16 06:37 Dose: 25 mcg Lorazepam (Ativan Inj) 2 mg IVP Q30M PRN; Protocol PRN Reason: CIWA>8 Last Admin: 10/12/16 03:13 Dose: 2 mg Ondansetron HCl (Zofran Inj) 4 mg IVP Q4HR PRN PRN Reason: Nausea / Vomiting Pantoprazole Sodium (Protonix) 40 mg IVP QDAC [facility] Last Admin: 10/12/16 06:37 Dose: 40 mg Sodium Chloride (Normal Saline Flush 0.9%) 10 ml IVP PRN PRN PRN Reason: NEEDED PER PROVIDER ORDERS Sodium Chloride (Normal Saline Flush 0.9%) 10 ml IVP Q8HR POOJA Last Admin: 10/12/16 04:18 Dose: Not Given Ziprasidone (Geodon Im) 10 mg IM Q6H PRN PRN Reason: Agitation Last Admin: 10/11/16 20:02 Dose: 10 mg Baclofen 10 mg PO TID PRN 03/14/13 Gabapentin 600 mg PO 0800,1400 11/17/14 Ibuprofen 400 mg PO TID PRN 03/20/15 Citalopram [CeleXA] 20 mg PO DAILY 09/01/16 Famotidine [Pepcid] 20 mg DAILY 10/10/16 Omeprazole 20 mg DAILY 10/10/16 Tiotropium [place] [Spiriva] 1 cap INH DAILY 10/10/16 Gabapentin [Gabapentin] 900 mg PO QPM 10/11/16 Objective - Vital Signs/Intake & Output Reviewed Vital Signs: Yes Vital Signs: Vital Signs x48h Temp Pulse Resp BP Pulse Ox 10/12/16 07:00 36.3 C L 78 20 134/73 H 97 10/12/16 06:00 36 C L 75 18 116/71 97 10/12/16 05:00 82 21 132/76 H 99 10/12/16 04:00 86 22 162/78 H 99 10/12/16 03:00 88 23 160/83 H 94 10/12/16 02:00 86 21 164/89 H 95 10/12/16 01:00 77 14 152/79 H 95 10/12/16 00:00 69 14 128/69 98 Intake & Output: Intake & Output 10/09/16 10/10/16 10/11/16 10/12/16 23:59 23:59 23:59 23:59 Intake Total 1666 2167 1300 Output Total 195 585 220 Balance 1471 4085 1080 - Objective General Appearance: positive: No acute distress, Alert, Other (disheveled white male looks older than stated age with missing teeth) Eyes Bilateral: positive: PERRL, EOMI ENT: positive: Pharynx nml Neck: positive: No JVD. negative: Stiff neck, Carotid bruit Respiratory: positive: Chest non-tender, Other (he gets occ wheeze or rhonchi then coughs and it disappears.) Cardiovascular: positive: Regular rate & rhythm, No murmur. negative: Gallop/S4 , Friction rub Abdomen: positive: Non-tender, Nml bowel sounds. negative: Guarding, Rebound Skin: positive: Color nml, No rash Extremities: positive: Non-tender, No pedal edema (on intact leg), Other (right AKA) Neurologic/Psychiatric: positive: Disoriented to place, Disoriented to time, Slurred/abnml speech (alternates with word finding problems), Depressed mood/ affect (but also gets anxious at times.), Other (speech alternates between between normal to slurred) - Lab Results Fish Bones: 10/12/16 05:21 10/12/16 05:21 Other Labs: Lab Results x24hrs 10/12/16 10/12/16 10/12/16 Range/Units 05:21 05:21 05:21 WBC (4.8-10.8) x10^3/uL RBC (4.70-6.10) 10^6/uL Hgb (14.0-18.0) g/dL Hct (42.0-52.0) % MCV (80.0-94.0) fL MCH (27.0-31.0) pg MCHC (32.0-36.0) g/dL RDW (12.0-15.0) % Plt Count (130-450) 10^3/uL MPV (7.4-11.4) fL Neut # (1.5-6.6) 10^3/uL Lymph # (1.5-3.5) 10^3/uL [place] # (0.0-1.0) 10^3/uL Eos # (0.0-0.7) 10^3/uL Baso # (0.0-0.1) 10^3/uL Absolute Nucleated RBC x10^3/uL Nucleated RBCs /100WBC VBG pH 7.169 L (7.31-7.41) Ionized Calcium 1.14 L YES (1.15-1.33) mmol/L Sodium 142 (135-145) mmol/L Potassium 3.9 (3.5-5.0) mmol/L Chloride 116 H (101-111) mmol/L Carbon Dioxide 19 L (21-32) mmol/L Anion Gap 7.0 (6-13) BUN 16 (6-20) mg/dL Creatinine 1.0 (0.6-1.2) mg/dL Estimated GFR (MDRD) 75 L (>89) Glucose 108 H (70-100) mg/dL Calcium 8.2 L 8.2 L (8.5-10.3) mg/dL Phosphorus 2.6 (2.5-4.6) mg/dL Magnesium 1.8 (1.7-2.8) mg/dL Total Bilirubin 0.5 (0.2-1.0) mg/dL AST 13 (10-42) IU/L ALT < 10 L (10-60) IU/L Alkaline Phosphatase 60 (42-121) IU/L Total Protein 6.3 L (6.7-8.2) g/dL Albumin 2.8 L (3.2-5.5) g/dL Globulin 3.5 (2.1-4.2) g/dL Albumin/Globulin Ratio 0.8 L (1.0-2.2) Vitamin B12 (180-914) pg/mL Folate (5.90 - >24.8) ng/mL 10/12/16 10/11/16 10/11/16 Range/Units 05:21 20:13 05:00 WBC 8.0 (4.8-10.8) x10^3/uL RBC 4.36 L (4.70-6.10) 10^6/uL Hgb 14.3 (14.0-18.0) g/dL Hct 44.9 (42.0-52.0) % MCV 103.0 H (80.0-94.0) fL MCH 32.8 H (27.0-31.0) pg MCHC 31.8 L (32.0-36.0) g/dL RDW 17.2 H (12.0-15.0) % Plt Count 218 (130-450) 10^3/uL MPV 7.4 (7.4-11.4) fL Neut # 6.7 H (1.5-6.6) 10^3/uL Lymph # 0.4 L (1.5-3.5) 10^3/uL [place] # 0.8 (0.0-1.0) 10^3/uL Eos # 0.1 (0.0-0.7) 10^3/uL Baso # 0.1 (0.0-0.1) 10^3/uL Absolute Nucleated RBC 0.00 x10^3/uL Nucleated RBCs 0.0 /100WBC VBG pH (7.31-7.41) Ionized Calcium (1.15-1.33) mmol/L Sodium 142 (135-145) mmol/L Potassium 3.9 (3.5-5.0) mmol/L Chloride 114 H (101-111) mmol/L Carbon Dioxide 19 L (21-32) mmol/L Anion Gap 9.0 (6-13) BUN 17 (6-20) mg/dL Creatinine 1.0 (0.6-1.2) mg/dL Estimated GFR (MDRD) 75 L (>89) Glucose 105 H (70-100) mg/dL Calcium 8.3 L (8.5-10.3) mg/dL Phosphorus (2.5-4.6) mg/dL Magnesium (1.7-2.8) mg/dL Total Bilirubin 0.4 (0.2-1.0) mg/dL AST 19 (10-42) IU/L ALT 10 (10-60) IU/L Alkaline Phosphatase 67 (42-121) IU/L Total Protein 7.2 (6.7-8.2) g/dL Albumin 3.5 (3.2-5.5) g/dL Globulin 3.7 (2.1-4.2) g/dL Albumin/Globulin Ratio 0.9 L (1.0-2.2) Vitamin B12 177 L (180-914) pg/mL Folate 9.96 (5.90 - >24.8) ng/mL Assessment/Plan - Problem List (1) Metabolic encephalopathy Impression: present on admission, and slowly resolving. from myxedema, low B12. Initial thought was that this was from infection but as workup and treatment has ensued we think it isn't the meningitis that was feared. still on empiric abx. he was very sedated after the meds for spinal tap and those have worn off. will order PT/OT (2) Hypothyroid Impression: Present on admission. TSH is 118. on synthroid IV and improving mentation. Qualifiers: Hypothyroidism type: unspecified Qualified Code(s): E03.9 - Hypothyroidism , unspecified (3) Pneumonia Impression: Seen on CXR in eval for AMS. Day #2 of rocephin and azithromycin. blood C&S neg. hpothermic and WBC nml. Qualifiers: Pneumonia type: due to unspecified organism Laterality: bilateral Lung location: upper lobe of lung Qualified Code(s): J18.9 - Pneumonia, unspecified organism (4) Dysphagia Impression: history of pharyngeal cancer with treatment. suspect aspiration may be a prob. Speech therapy assessment and tx ordered. Qualifiers: Dysphagia type: unspecified Qualified Code(s): R13.10 - Dysphagia, unspecified (5) Low vitamin B12 level Impression: 1000 mg of IM B12 ordered. macrocytosis seen on CBC. That is also from low TSH.
[2016-10-12] MEDS: ALBUTEROL NEB 2.5 MG/3 ML INH PRN ×2 (08:00→19:26)
[2016-10-12] MEDS ORDERED: CYANOCOBALAMIN 1,000 MCG/ML VIAL IM SCH (08:00)
[2016-10-12] MEDS: cefTRIAXone 2 GM in SODIUM CHLORIDE 0.9% MINIBAG 100 ML IV SCH (08:09)
[2016-10-12] MEDS: ENOXAPARIN 40 MG/0.4 ML SYRINGE SUBQ SCH (08:09)
[2016-10-12] MEDS: AZITHROMYCIN INJ 500 MG in SODIUM CHLORIDE 0.9% 250 ML IV SCH (08:46)
[2016-10-12] MEDS: MULTIVITAMIN 10 ML, THIAMINE INJ 100 MG, FOLIC ACID INJ 1 MG in SODIUM CHLORIDE 0.9% 1,... IV SCH (09:54)
[2016-10-12] MEDS: HYDROmorphone 1 MG/ML SYRINGE IVP PRN (15:07)
[2016-10-12] MEDS: VANCOMYCIN INJ 1 GM in SODIUM CHLORIDE 0.9% 250 ML IV SCH (16:48)
[2016-10-12] MEDS ORDERED: DEXTROSE 50% ABBOJECT 25 GM/50 ML SYRINGE ONE (17:59)
[2016-10-12] MEDS ORDERED: DEXTROSE 50% ABBOJECT 25 GM/50 ML SYRINGE IVP ONE (18:01)
[2016-10-12] MEDS: SODIUM CHLORIDE FLUSH 0.9% 10 ML SYRINGE IVP PRN (20:03)
[2016-10-13] MEDS: SODIUM CHLORIDE FLUSH 0.9% 10 ML SYRINGE IVP SCH ×3 (05:50→22:39)
[2016-10-13] MEDS: D5NS W/20 MEQ KCL 1,000 ML IV SCH (05:50)
[2016-10-13 05:58] LABS: BUN - BLOOD UREA NITROGEN 11 mg/dL (6-20); CALCIUM 8.4 mg/dL (8.5-10.3); CARBON DIOXIDE - CO2 16 mmol/L (21-32); CHLORIDE 116 mmol/L (101-111); GFR - MDRD 75 (>89); GLUCOSE 113 mg/dL (70-100); POTASSIUM 4.1 mmol/L (3.5-5.0); SODIUM 142 mmol/L (135-145)
[2016-10-13] MEDS: LEVOTHYROXINE 100 MCG VIAL IVP SCH (05:59)
[2016-10-13] MEDS: PANTOPRAZOLE 40 MG VIAL IVP SCH (05:59)
[2016-10-13] MEDS: ALBUTEROL NEB 2.5 MG/3 ML INH PRN (07:44)
[2016-10-13] MEDS: cefTRIAXone 2 GM in SODIUM CHLORIDE 0.9% MINIBAG 100 ML IV SCH (08:11)
[2016-10-13] MEDS: ENOXAPARIN 40 MG/0.4 ML SYRINGE SUBQ SCH (08:12)
[2016-10-13] MEDS: AZITHROMYCIN INJ 500 MG in SODIUM CHLORIDE 0.9% 250 ML IV SCH (09:12)
[2016-10-13] MEDS: MULTIVITAMIN 10 ML, THIAMINE INJ 100 MG, FOLIC ACID INJ 1 MG in SODIUM CHLORIDE 0.9% 1,... IV SCH (10:25)
[2016-10-13] MEDS: MAGNESIUM OXIDE 400 MG TABLET PO SCH (11:30)
[2016-10-13] MEDS: LORazepam 2 MG/ML SYRINGE IVP PRN (12:54)
[2016-10-13] MEDS: HYDROmorphone 1 MG/ML SYRINGE IVP PRN (16:14)
[2016-10-13] MEDS: VANCOMYCIN INJ 1 GM in SODIUM CHLORIDE 0.9% 250 ML IV SCH (16:54)
--- NOTE | 2016-10-13 18:08 | PROVIDER PROGRESS NOTE ---
Assessment/Plan - Problem List (1) Metabolic encephalopathy Assessment/Plan: present on admission, and slowly resolving. from myxedema, low B12. Initial thought was that this was from meningitis but does not appear to be from meningitis still on empiric abx. Will continue abx as he did have pneumonia He is improved today, following commands, more alert Will repeat TSH tomorrow PT eval (2) Hypothyroid Impression: Present on admission. TSH is 118. on synthroid IV and improving mentation Will recheck TSH and consider changing to PO synthroid once able to swallow Qualifiers: Hypothyroidism type: unspecified Qualified Code(s): E03.9 - Hypothyroidism , unspecified (3) Pneumonia Impression: Seen on CXR in eval for AMS. Day #3 of rocephin and azithromycin. blood C&S neg. hpothermic and WBC nml. On 2L of O2 Wean O2 Qualifiers: Pneumonia type: due to unspecified organism Laterality: bilateral Lung location: upper lobe of lung Qualified Code(s): J18.9 - Pneumonia, unspecified organism (4) Dysphagia Impression: history of pharyngeal cancer with treatment. suspect aspiration may be a prob. Speech therapy assessment and tx ordered. Patient too lethargic yesterday will reevaluate today Qualifiers: Dysphagia type: unspecified Qualified Code(s): R13.10 - Dysphagia, unspecified (5) Low vitamin B12 level Impression: 1000 mg of IM B12 ordered. macrocytosis seen on CBC. That is also from low TSH. - Current Meds Current Meds: Current Medications Generic Name Dose Route Start Last Admin Trade Name Freq PRN Reason Stop Dose Admin Albuterol 2.5 mg 10/10/16 17:07 10/13/16 07:44 INH 2.5 mg Q4HR PRN Administration Wheezing Enoxaparin Sodium 40 mg 10/11/16 09:00 10/13/16 08:12 Lovenox SUBQ 40 mg DAILY POOJA Administration Hydromorphone HCl 0.5 mg 10/10/16 20:56 10/13/16 16:14 Dilaudid Inj IVP 0.5 mg Q2HR PRN Administration Pain 8 to 10 Potassium Chloride/Dextrose/Sod Cl 1,000 mls @ 100 mls/hr 10/10/16 18:00 05:50 IV 100 mls/hr .Q10H POOJA Administration Ceftriaxone Sodium 2 gm/ 100 mls @ 200 mls/hr 10/11/16 09:00 10/13/16 08:11 Sodium Chloride IV 200 mls/hr DAILY POOJA Administration Vancomycin HCl 1 gm/ Sodium 250 mls @ 167 mls/hr 10/11/16 17:00 10/13/16 16:54 Chloride IV 167 mls/hr Q24H POOJA Administration Azithromycin 500 mg/ Sodium 250 mls @ 250 mls/hr 10/11/16 10:00 10/13/16 09:12 Chloride IV 250 mls/hr DAILY@1000 POOJA Administration Multivitamins 10 ml/ Thiamine 1,011.2 mls @ 100 mls/hr 10/12/16 09:00 10/13/16 10:25 HCl 100 mg/ Folic Acid 1 mg/ IV 100 mls/hr Sodium Chloride DAILY POOJA Administration Ketorolac Tromethamine 15 mg 10/10/16 20:56 10/10/16 23:43 Toradol Inj IVP 10/15/16 20:55 15 mg Q6HR PRN Administration PAIN Levothyroxine Sodium 25 mcg 10/11/16 07:00 10/13/16 05:59 Synthroid Inj IVP 25 mcg QDAC POOJA Administration Lorazepam 2 mg 10/11/16 19:59 10/13/16 12:54 Ativan Inj IVP 2 mg Q30M PRN Administration CIWA>8 Protocol Magnesium Oxide 400 mg 10/13/16 08:00 10/13/16 11:30 Mag Ox PO Not Given DAILYWM POOJA Pantoprazole Sodium 40 mg 10/10/16 18:00 10/13/16 05:59 Protonix IVP 40 mg QDAC POOJA Administration Sodium Chloride 10 ml 10/10/16 17:07 10/12/16 20:03 Normal Saline Flush 0.9% IVP 10 ml PRN PRN Administration NEEDED PER PROVIDER ORDERS Sodium Chloride 10 ml 10/10/16 22:00 10/13/16 12:55 Normal Saline Flush 0.9% IVP 10 ml Q8HR POOJA Administration Ziprasidone 10 mg 10/11/16 19:43 10/11/16 20:02 Geodon Im IM 10 mg Q6H PRN Administration Agitation - Lab Result Lab results reviewed: Yes Fish Bone Diagrams: 10/12/16 05:21 10/13/16 05:20 - EKG Results EKG Interpreted Independently: Yes - Diagnostic Imaging Results Diagnostic Imaging Results: positive: Final report reviewed - Additional Planning Condition/Complexity: Guarded My Orders: My Active Orders 10/14/16 05:00 TSH [THYROID STIMULATING HORMONE] [IAI] DAILYLAB Consult/Specialty: PT Plan Discussed with:: Patient Time Spent: 31-60 minutes Subjective - Subjective Patient Reports: Other (Drowsy but arousable and answers questions appropriately. Following commands. No fevers, no shortness of breath, no cough.) Nursing Reports: No Complaints Objective Vital Signs: Vital Signs - 24 hr 10/12/16 10/13/16 10/13/16 19:30 00:00 05:00 Temperature 36.4 C L 36.7 C Heart Rate 85 Heart Rate [ 81 84 Brachial] Heart Rate [ 20 L Monitoring electrodes] Respiratory 18 20 95 H Rate Blood Pressure 112/65 178/88 H [Right Brachial artery] O2 Saturation 92 2 L 10/13/16 10/13/16 10/13/16 07:45 08:05 08:20 Temperature 36.3 C L 36.5 C Heart Rate 82 Heart Rate [ Brachial] Heart Rate [ 87 Monitoring electrodes] Respiratory 18 20 Rate Blood Pressure 176/83 H [Right Brachial artery] O2 Saturation 92 10/13/16 10/13/16 13:00 16:00 Temperature 36.5 C 36.4 C L Heart Rate Heart Rate [ 78 80 Brachial] Heart Rate [ Monitoring electrodes] Respiratory 16 24 Rate Blood Pressure 176/78 H 174/81 H [Right Brachial artery] O2 Saturation 93 93 Oxygen O2 Source Nasal cannula I&O (Last 24 Hrs): Intake and Output Totals x24h 10/11/16 10/12/16 10/13/16 23:59 23:59 23:59 Intake Total 4670 2436 1724 Output Total 585 1132 1500 Balance 4085 1304 224 General: Alert, Cooperative, Other (Drowsy oriented x 2) HEENT: Atraumatic, PERRLA, EOMI, Mucous membr. moist/pink Neck: Supple, No JVD, No thyromegaly, +2 carotid pulse wo bruit, No LAD Lymphatic: no adenopathy Neuro: Alert, Non Focal, CN 2-12 Grossly Intact Cardiovascular: Regular rate, Normal S1, Normal S2, No murmurs Respiratory: Chest non-tender, No respiratory distress, Rhonchi Abdomen: Normal bowel sounds, Soft, No tenderness, No hepatospenomegaly, No masses Extremities: No clubbing, No cyanosis, Normal pulses, No tenderness/swelling Skin: No rashes, No breakdown - Results Results: Laboratory Results WBC 8.0 x10^3/uL (4.8-10.8) 10/12/16 05:21 RBC 4.36 10^6/uL (4.70-6.10) L 10/12/16 05:21 Hgb 14.3 g/dL (14.0-18.0) 10/12/16 05:21 Hct 44.9 % (42.0-52.0) 10/12/16 05:21 MCV 103.0 fL (80.0-94.0) H 10/12/16 05:21 MCH 32.8 pg (27.0-31.0) H 10/12/16 05:21 MCHC 31.8 g/dL (32.0-36.0) L 10/12/16 05:21 RDW 17.2 % (12.0-15.0) H 10/12/16 05:21 Plt Count 218 10^3/uL (130-450) 10/12/16 05:21 MPV 7.4 fL (7.4-11.4) 10/12/16 05:21 Neut # 6.7 10^3/uL (1.5-6.6) H 10/12/16 05:21 Lymph # 0.4 10^3/uL (1.5-3.5) L 10/12/16 05:21 [place] # 0.8 10^3/uL (0.0-1.0) 10/12/16 05:21 Eos # 0.1 10^3/uL (0.0-0.7) 10/12/16 05:21 Baso # 0.1 10^3/uL (0.0-0.1) 10/12/16 05:21 Absolute Nucleated RBC 0.00 x10^3/uL 10/12/16 05:21 Nucleated RBCs 0.0 /100WBC 10/12/16 05:21 PT 9.8 secs (9.9-12.6) L 10/10/16 14:40 INR 0.9 (0.8-1.2) 10/10/16 14:40 APTT 26.1 secs (24.9-33.3) 10/10/16 14:40 VBG pH 7.169 (7.31-7.41) L 10/12/16 05:21 Ionized Calcium 1.14 mmol/L (1.15-1.33) L 10/12/16 05:21 Sodium 142 mmol/L (135-145) 10/13/16 05:20 Potassium 4.1 mmol/L (3.5-5.0) 10/13/16 05:20 Chloride 116 mmol/L (101-111) H 10/13/16 05:20 Carbon Dioxide 16 mmol/L (21-32) L 10/13/16 05:20 Anion Gap 10.0 (6-13) 10/13/16 05:20 BUN 11 mg/dL (6-20) 10/13/16 05:20 Creatinine 1.0 mg/dL (0.6-1.2) 10/13/16 05:20 Estimated GFR (MDRD) 75 (>89) L 10/13/16 05:20 Glucose 113 mg/dL (70-100) H 10/13/16 05:20 POC Whole Bld Glucose 95 mg/dL (70 - 100) 10/13/16 11:47 Lactic Acid 1.2 mmol/L (0.5-2.2) 10/10/16 23:14 Calcium 8.4 mg/dL (8.5-10.3) L 10/13/16 05:20 Ionized Calcium NO 10/13/16 05:20 Phosphorus 2.6 mg/dL (2.5-4.6) 10/12/16 05:21 Magnesium 1.8 mg/dL (1.7-2.8) 10/12/16 05:21 Total Bilirubin 0.5 mg/dL (0.2-1.0) 10/12/16 05:21 AST 13 IU/L (10-42) 10/12/16 05:21 ALT < 10 IU/L (10-60) L 10/12/16 05:21 Alkaline Phosphatase 60 IU/L (42-121) 10/12/16 05:21 Ammonia 9.0 umol/L (7-35) 10/10/16 15:19 Total Creatine Kinase 101 IU/L (22-269) 10/10/16 14:40 CK-MB (CK-2) 5.2 ng/mL (0.6-6.3) 10/10/16 14:40 Troponin I < 0.04 ng/mL (<0.49) 10/10/16 19:45 Total Protein 6.3 g/dL (6.7-8.2) L 10/12/16 05:21 Albumin 2.8 g/dL (3.2-5.5) L 10/12/16 05:21 Globulin 3.5 g/dL (2.1-4.2) 10/12/16 05:21 Albumin/Globulin Ratio 0.8 (1.0-2.2) L 10/12/16 05:21 Lipase 41 U/L (22-51) 10/10/16 14:40 Vitamin B12 177 pg/mL (180-914) L 10/11/16 05:00 Folate 9.96 ng/mL (5.90 - >24.8) 10/11/16 05:00 TSH 118.00 uIU/mL (0.34-5.60) H 10/10/16 14:40 Thyroxine (T4) 3.75 ug/dL (6.09-12.23) L 10/10/16 14:40 Free T3 pg/mL 2.26 pg/mL (2.5-3.9) L 10/10/16 14:40 Cortisol 19.2 ug/dL 10/10/16 14:40 Urine Color YELLOW 10/10/16 15:30 Urine Clarity CLEAR (CLEAR) 10/10/16 15:30 Urine pH 5.5 PH (5.0-7.5) 10/10/16 15:30 Ur Specific [place] 1.025 (1.002-1.030) 10/10/16 15:30 Urine Protein NEGATIVE mg/dL (NEGATIVE) 10/10/16 15:30 Urine Glucose (UA) 100 mg/dL (NEGATIVE) H 10/10/16 15:30 Urine Ketones TRACE mg/dL (NEGATIVE) 10/10/16 15:30 Urine Occult Blood NEGATIVE (NEGATIVE) 10/10/16 15:30 Urine Nitrite NEGATIVE (NEGATIVE) 10/10/16 15:30 Urine Bilirubin NEGATIVE (NEGATIVE) 10/10/16 15:30 Urine Urobilinogen 0.2 (NORMAL) E.U./dL (NORMAL) 10/10/16 15:30 Ur Leukocyte Esterase NEGATIVE (NEGATIVE) 10/10/16 15:30 Ur Microscopic Review NOT INDICATED 10/10/16 15:30 Urine Culture Comments NOT INDICATED 10/10/16 15:30 Vancomycin Trough 16.2 ug/mL (5.0-15.0) H 10/13/16 17:04 Salicylates < 6.0 mg/dL 10/10/16 14:40 Urine Opiates Screen NEGATIVE (NEGATIVE) 10/10/16 15:30 Ur Oxycodone Screen NEGATIVE (NEGATIVE) 10/10/16 15:30 Urine Methadone Screen NEGATIVE (NEGATIVE) 10/10/16 15:30 Ur Propoxyphene Screen NEGATIVE (NEGATIVE) 10/10/16 15:30 Acetaminophen < 10 ug/mL (10-30) L 10/10/16 14:40 Ur Barbiturates Screen NEGATIVE (NEGATIVE) 10/10/16 15:30 Ur Tricyclics Screen NEGATIVE (NEGATIVE) 10/10/16 15:30 Ur Phencyclidine Scrn NEGATIVE (NEGATIVE) 10/10/16 15:30 Ur Amphetamine Screen NEGATIVE (NEGATIVE) 10/10/16 15:30 U Methamphetamines Scrn NEGATIVE (NEGATIVE) 10/10/16 15:30 U Benzodiazepines Scrn NEGATIVE (NEGATIVE) 10/10/16 15:30 Urine Cocaine Screen NEGATIVE (NEGATIVE) 10/10/16 15:30 U Cannabinoids Screen POSITIVE (NEGATIVE) H 10/10/16 15:30 Ethyl Alcohol < 5.0 mg/dL 10/10/16 14:40 - Procedures Procedures: Procedures REPLACE GASTROSTOMY TUBE (03/14/13)
[2016-10-14] MEDS: LORazepam 2 MG/ML SYRINGE IVP PRN (00:11)
[2016-10-14] MEDS: D5NS W/20 MEQ KCL 1,000 ML IV SCH ×3 (03:29→10:34)
[2016-10-14 06:04] LABS: BUN - BLOOD UREA NITROGEN 7 mg/dL (6-20); CARBON DIOXIDE - CO2 19 mmol/L (21-32); CHLORIDE 116 mmol/L (101-111); CREATININE 0.8 mg/dL (0.6-1.2); GFR - MDRD 97 (>89); GLUCOSE 109 mg/dL (70-100); POTASSIUM 3.8 mmol/L (3.5-5.0); SODIUM 141 mmol/L (135-145)
[2016-10-14 06:35] LABS: CALCIUM, IONIZED 1.16 mmol/L (1.15-1.33); VBG PH 7.307 (7.31-7.41)
[2016-10-14] MEDS: SODIUM CHLORIDE FLUSH 0.9% 10 ML SYRINGE IVP SCH ×3 (06:39→21:44)
[2016-10-14] MEDS: LEVOTHYROXINE 100 MCG VIAL IVP SCH (06:39)
[2016-10-14] MEDS: PANTOPRAZOLE 40 MG VIAL IVP SCH (06:40)
[2016-10-14] MEDS: ALBUTEROL NEB 2.5 MG/3 ML INH PRN (07:35)
[2016-10-14] MEDS: cefTRIAXone 2 GM in SODIUM CHLORIDE 0.9% MINIBAG 100 ML IV SCH (08:16)
[2016-10-14] MEDS: ENOXAPARIN 40 MG/0.4 ML SYRINGE SUBQ SCH (08:19)
[2016-10-14] MEDS: AZITHROMYCIN INJ 500 MG in SODIUM CHLORIDE 0.9% 250 ML IV SCH (09:02)
[2016-10-14] MEDS: MAGNESIUM OXIDE 400 MG TABLET PO SCH (09:47)
[2016-10-14] MEDS: MULTIVITAMIN 10 ML, THIAMINE INJ 100 MG, FOLIC ACID INJ 1 MG in SODIUM CHLORIDE 0.9% 1,... IV SCH (10:11)
--- NOTE | 2016-10-14 17:58 | PROVIDER PROGRESS NOTE ---
Assessment/Plan - Problem List (1) Metabolic encephalopathy Assessment/Plan: present on admission, and slowly resolving. from myxedema coma, low B12. Initial thought was that this was from meningitis but does not appear to be from meningitis still on empiric abx. Will continue abx as he did have pneumonia but discontinue vancomycin which was for meningitis Continues to improve still very sleepy throughout the day but more easily arousible and answering questions more appropriately Repeat TSH this am down to 74.23 from 118 PT eval pending (2) Hypothyroid Impression: Present on admission. TSH was 118 down to 74.23 On synthroid IV and improving mentation Patient able to swallow but will give one more day of IV synthroid then switch to PO Qualifiers: Hypothyroidism type: unspecified Qualified Code(s): E03.9 - Hypothyroidism , unspecified (3) Pneumonia Impression: Seen on CXR in eval for AMS. Day #4 of rocephin and azithromycin. blood C&S neg. hypothermic and WBC nml. On 2L of O2 Wean O2 Qualifiers: Pneumonia type: due to unspecified organism Laterality: bilateral Lung location: upper lobe of lung Qualified Code(s): J18.9 - Pneumonia, unspecified organism (4) Dysphagia Impression: history of pharyngeal cancer with treatment. suspect aspiration may be a prob. Speech therapy assessment and tx ordered. Patient too lethargic first two days he was better today but still not swallowing well will place on dysphagia diet Speech following Qualifiers: Dysphagia type: unspecified Qualified Code(s): R13.10 - Dysphagia, unspecified (5) Low vitamin B12 level Impression: 1000 mg of IM B12 ordered. macrocytosis seen on CBC. That is also from low TSH. - Current Meds Current Meds: Current Medications Generic Name Dose Route Start Last Admin Trade Name Freq PRN Reason Stop Dose Admin Albuterol 2.5 mg 10/10/16 17:07 10/14/16 07:35 INH 2.5 mg Q4HR PRN Administration Wheezing Enoxaparin Sodium 40 mg 10/11/16 09:00 10/14/16 08:19 Lovenox SUBQ 40 mg DAILY POOJA Administration Hydromorphone HCl 0.5 mg 10/10/16 20:56 10/13/16 16:14 Dilaudid Inj IVP 0.5 mg Q2HR PRN Administration Pain 8 to 10 Potassium Chloride/Dextrose/Sod Cl 1,000 mls @ 100 mls/hr 10/10/16 18:00 10:34 IV Not Given .Q10H POOJA Ceftriaxone Sodium 2 gm/ 100 mls @ 200 mls/hr 10/11/16 09:00 10/14/16 08:16 Sodium Chloride IV 200 mls/hr DAILY POOJA Administration Azithromycin 500 mg/ Sodium 250 mls @ 250 mls/hr 10/11/16 10:00 10/14/16 09:02 Chloride IV 250 mls/hr DAILY@1000 POOJA Administration Multivitamins 10 ml/ Thiamine 1,011.2 mls @ 100 mls/hr 10/12/16 09:00 10/14/16 10:11 HCl 100 mg/ Folic Acid 1 mg/ IV 100 mls/hr Sodium Chloride DAILY POOJA Administration Ketorolac Tromethamine 15 mg 10/10/16 20:56 10/10/16 23:43 Toradol Inj IVP 10/15/16 20:55 15 mg Q6HR PRN Administration PAIN Levothyroxine Sodium 25 mcg 10/11/16 07:00 10/14/16 06:39 Synthroid Inj IVP 25 mcg QDAC POOJA Administration Lorazepam 2 mg 10/11/16 19:59 10/14/16 00:11 Ativan Inj IVP 2 mg Q30M PRN Administration CIWA>8 Protocol Magnesium Oxide 400 mg 10/13/16 08:00 10/14/16 09:47 Mag Ox PO Not Given DAILYWM POOJA Pantoprazole Sodium 40 mg 10/10/16 18:00 10/14/16 06:40 Protonix IVP 40 mg QDAC POOJA Administration Sodium Chloride 10 ml 10/10/16 17:07 10/12/16 20:03 Normal Saline Flush 0.9% IVP 10 ml PRN PRN Administration NEEDED PER PROVIDER ORDERS Sodium Chloride 10 ml 10/10/16 22:00 10/14/16 14:07 Normal Saline Flush 0.9% IVP Not Given Q8HR POOJA Ziprasidone 10 mg 10/11/16 19:43 10/11/16 20:02 Geodon Im IM 10 mg Q6H PRN Administration Agitation - Lab Result Lab results reviewed: Yes Fish Bone Diagrams: 10/12/16 05:21 10/14/16 05:47 - EKG Results EKG Interpreted Independently: Yes - Diagnostic Imaging Results Diagnostic Imaging Results: positive: Final report reviewed - Additional Planning Condition/Complexity: Guarded My Orders: My Active Orders 10/14/16 Dinner Dysphagia Puree Diet [DIET] Consult/Specialty: PT, Other (Speech) Plan Discussed with:: Patient Time Spent: 31-60 minutes Subjective - Subjective Patient Reports: Feeling Better (Patient more alert today. States he is feeling better. Denies any fevers, chills or shortness of breath. He does admit he is very weak.) Nursing Reports: No Complaints Objective Vital Signs: Vital Signs - 24 hr 10/13/16 10/13/16 10/14/16 20:12 20:25 00:06 Temperature 36.7 C 36.5 C Heart Rate 88 Heart Rate [ Activity] Heart Rate [ 82 85 Brachial] Heart Rate [ Supine] Respiratory 20 16 20 Rate Blood Pressure [Activity] Blood Pressure 177/85 H 177/83 H [Right Brachial artery] Blood Pressure [Supine] O2 Saturation 92 94 10/14/16 10/14/16 10/14/16 00:45 05:00 07:35 Temperature 36.4 C L Heart Rate 78 Heart Rate [ Activity] Heart Rate [ 80 79 Brachial] Heart Rate [ Supine] Respiratory 16 18 18 Rate Blood Pressure [Activity] Blood Pressure 108/74 128/86 H [Right Brachial artery] Blood Pressure [Supine] O2 Saturation 92 10/14/16 10/14/16 10/14/16 09:00 11:27 11:49 Temperature 36.3 C L 36.6 C Heart Rate Heart Rate [ 83 Activity] Heart Rate [ 70 87 Brachial] Heart Rate [ 79 Supine] Respiratory 19 26 H Rate Blood Pressure 163/87 H [Activity] Blood Pressure 131/61 H 162/84 H [Right Brachial artery] Blood Pressure 159/87 H [Supine] O2 Saturation 96 92 10/14/16 10/14/16 12:00 16:12 Temperature 36.3 C L Heart Rate Heart Rate [ 83 Activity] Heart Rate [ 74 Brachial] Heart Rate [ 79 Supine] Respiratory 24 Rate Blood Pressure 163/87 H [Activity] Blood Pressure 181/94 H [Right Brachial artery] Blood Pressure 159/87 H [Supine] O2 Saturation 93 Oxygen O2 Source Nasal cannula I&O (Last 24 Hrs): Intake and Output Totals x24h 10/12/16 10/13/16 10/14/16 23:59 23:59 23:59 Intake Total 2436 2354 1800 Output Total 1132 2600 1250 Balance 1304 -246 550 General: Alert, Cooperative, No acute distress, Other (Oriented x2) HEENT: Atraumatic, PERRLA, EOMI, Mucous membr. moist/pink Neck: Supple, No JVD, No thyromegaly, +2 carotid pulse wo bruit, No LAD Lymphatic: no adenopathy Neuro: Alert, Disoriented (To time), Non Focal, CN 2-12 Grossly Intact Cardiovascular: Regular rate, Normal S1, Normal S2, No murmurs Respiratory: Chest non-tender, No respiratory distress, Breath sounds nml Abdomen: Normal bowel sounds, Soft, No tenderness, No hepatospenomegaly, No masses Extremities: No clubbing, No cyanosis, No edema, Normal pulses Skin: No rashes, No breakdown - Results Results: Laboratory Results WBC 8.0 x10^3/uL (4.8-10.8) 10/12/16 05:21 RBC 4.36 10^6/uL (4.70-6.10) L 10/12/16 05:21 Hgb 14.3 g/dL (14.0-18.0) 10/12/16 05:21 Hct 44.9 % (42.0-52.0) 10/12/16 05:21 MCV 103.0 fL (80.0-94.0) H 10/12/16 05:21 MCH 32.8 pg (27.0-31.0) H 10/12/16 05:21 MCHC 31.8 g/dL (32.0-36.0) L 10/12/16 05:21 RDW 17.2 % (12.0-15.0) H 10/12/16 05:21 Plt Count 218 10^3/uL (130-450) 10/12/16 05:21 MPV 7.4 fL (7.4-11.4) 10/12/16 05:21 Neut # 6.7 10^3/uL (1.5-6.6) H 10/12/16 05:21 Lymph # 0.4 10^3/uL (1.5-3.5) L 10/12/16 05:21 [place] # 0.8 10^3/uL (0.0-1.0) 10/12/16 05:21 Eos # 0.1 10^3/uL (0.0-0.7) 10/12/16 05:21 Baso # 0.1 10^3/uL (0.0-0.1) 10/12/16 05:21 Absolute Nucleated RBC 0.00 x10^3/uL 10/12/16 05:21 Nucleated RBCs 0.0 /100WBC 10/12/16 05:21 PT 9.8 secs (9.9-12.6) L 10/10/16 14:40 INR 0.9 (0.8-1.2) 10/10/16 14:40 APTT 26.1 secs (24.9-33.3) 10/10/16 14:40 VBG pH 7.307 (7.31-7.41) L 10/14/16 05:47 Ionized Calcium 1.16 mmol/L (1.15-1.33) 10/14/16 05:47 Sodium 141 mmol/L (135-145) 10/14/16 05:47 Potassium 3.8 mmol/L (3.5-5.0) 10/14/16 05:47 Chloride 116 mmol/L (101-111) H 10/14/16 05:47 Carbon Dioxide 19 mmol/L (21-32) L 10/14/16 05:47 Anion Gap 6.0 (6-13) 10/14/16 05:47 BUN 7 mg/dL (6-20) 10/14/16 05:47 Creatinine 0.8 mg/dL (0.6-1.2) 10/14/16 05:47 Estimated GFR (MDRD) 97 (>89) 10/14/16 05:47 Glucose 109 mg/dL (70-100) H 10/14/16 05:47 POC Whole Bld Glucose 79 mg/dL (70 - 100) 10/14/16 11:04 Lactic Acid 1.2 mmol/L (0.5-2.2) 10/10/16 23:14 Calcium 8.0 mg/dL (8.5-10.3) L 10/14/16 05:47 Ionized Calcium YES 10/14/16 05:47 Phosphorus 2.6 mg/dL (2.5-4.6) 10/12/16 05:21 Magnesium 1.8 mg/dL (1.7-2.8) 10/12/16 05:21 Total Bilirubin 0.5 mg/dL (0.2-1.0) 10/12/16 05:21 AST 13 IU/L (10-42) 10/12/16 05:21 ALT < 10 IU/L (10-60) L 10/12/16 05:21 Alkaline Phosphatase 60 IU/L (42-121) 10/12/16 05:21 Ammonia 9.0 umol/L (7-35) 10/10/16 15:19 Total Creatine Kinase 101 IU/L (22-269) 10/10/16 14:40 CK-MB (CK-2) 5.2 ng/mL (0.6-6.3) 10/10/16 14:40 Troponin I < 0.04 ng/mL (<0.49) 10/10/16 19:45 Total Protein 6.3 g/dL (6.7-8.2) L 10/12/16 05:21 Albumin 2.8 g/dL (3.2-5.5) L 10/12/16 05:21 Globulin 3.5 g/dL (2.1-4.2) 10/12/16 05:21 Albumin/Globulin Ratio 0.8 (1.0-2.2) L 10/12/16 05:21 Lipase 41 U/L (22-51) 10/10/16 14:40 Vitamin B12 177 pg/mL (180-914) L 10/11/16 05:00 Folate 9.96 ng/mL (5.90 - >24.8) 10/11/16 05:00 TSH 74.23 uIU/mL (0.34-5.60) H 10/14/16 05:47 Thyroxine (T4) 3.75 ug/dL (6.09-12.23) L 10/10/16 14:40 Free T3 pg/mL 2.26 pg/mL (2.5-3.9) L 10/10/16 14:40 Cortisol 19.2 ug/dL 10/10/16 14:40 Urine Color YELLOW 10/10/16 15:30 Urine Clarity CLEAR (CLEAR) 10/10/16 15:30 Urine pH 5.5 PH (5.0-7.5) 10/10/16 15:30 Ur Specific [place] 1.025 (1.002-1.030) 10/10/16 15:30 Urine Protein NEGATIVE mg/dL (NEGATIVE) 10/10/16 15:30 Urine Glucose (UA) 100 mg/dL (NEGATIVE) H 10/10/16 15:30 Urine Ketones TRACE mg/dL (NEGATIVE) 10/10/16 15:30 Urine Occult Blood NEGATIVE (NEGATIVE) 10/10/16 15:30 Urine Nitrite NEGATIVE (NEGATIVE) 10/10/16 15:30 Urine Bilirubin NEGATIVE (NEGATIVE) 10/10/16 15:30 Urine Urobilinogen 0.2 (NORMAL) E.U./dL (NORMAL) 10/10/16 15:30 Ur Leukocyte Esterase NEGATIVE (NEGATIVE) 10/10/16 15:30 Ur Microscopic Review NOT INDICATED 10/10/16 15:30 Urine Culture Comments NOT INDICATED 10/10/16 15:30 Last Dose Date 10/13/16 10/13/16 17:04 Last Dose Time 1654 10/13/16 17:04 Vancomycin Trough 16.2 ug/mL (5.0-15.0) H 10/13/16 17:04 Salicylates < 6.0 mg/dL 10/10/16 14:40 Urine Opiates Screen NEGATIVE (NEGATIVE) 10/10/16 15:30 Ur Oxycodone Screen NEGATIVE (NEGATIVE) 10/10/16 15:30 Urine Methadone Screen NEGATIVE (NEGATIVE) 10/10/16 15:30 Ur Propoxyphene Screen NEGATIVE (NEGATIVE) 10/10/16 15:30 Acetaminophen < 10 ug/mL (10-30) L 10/10/16 14:40 Ur Barbiturates Screen NEGATIVE (NEGATIVE) 10/10/16 15:30 Ur Tricyclics Screen NEGATIVE (NEGATIVE) 10/10/16 15:30 Ur Phencyclidine Scrn NEGATIVE (NEGATIVE) 10/10/16 15:30 Ur Amphetamine Screen NEGATIVE (NEGATIVE) 10/10/16 15:30 U Methamphetamines Scrn NEGATIVE (NEGATIVE) 10/10/16 15:30 U Benzodiazepines Scrn NEGATIVE (NEGATIVE) 10/10/16 15:30 Urine Cocaine Screen NEGATIVE (NEGATIVE) 10/10/16 15:30 U Cannabinoids Screen POSITIVE (NEGATIVE) H 10/10/16 15:30 Ethyl Alcohol < 5.0 mg/dL 10/10/16 14:40 - Procedures Procedures: Procedures REPLACE GASTROSTOMY TUBE (03/14/13)
[2016-10-15] MEDS: D5NS W/20 MEQ KCL 1,000 ML IV SCH ×3 (00:11→23:57)
[2016-10-15] MEDS: SODIUM CHLORIDE FLUSH 0.9% 10 ML SYRINGE IVP SCH ×3 (06:26→23:28)
[2016-10-15] MEDS: PANTOPRAZOLE 40 MG VIAL IVP SCH (06:26)
[2016-10-15] MEDS: LEVOTHYROXINE 100 MCG VIAL IVP SCH (06:29)
[2016-10-15 06:31] LABS: CALCIUM 8.5 mg/dL (8.5-10.3); CREATININE 0.9 mg/dL (0.6-1.2); POTASSIUM 4.4 mmol/L (3.5-5.0)
[2016-10-15] MEDS: ALBUTEROL NEB 2.5 MG/3 ML INH PRN (07:40)
[2016-10-15] MEDS: MULTIVITAMIN 10 ML, THIAMINE INJ 100 MG, FOLIC ACID INJ 1 MG in SODIUM CHLORIDE 0.9% 1,... IV SCH (09:21)
[2016-10-15] MEDS: KETOROLAC 15 MG/ML VIAL IVP PRN (09:25)
[2016-10-15] MEDS: cefTRIAXone 2 GM in SODIUM CHLORIDE 0.9% MINIBAG 100 ML IV SCH (09:26)
[2016-10-15] MEDS: ENOXAPARIN 40 MG/0.4 ML SYRINGE SUBQ SCH (09:29)
[2016-10-15] MEDS: MAGNESIUM OXIDE 400 MG TABLET PO SCH (09:32)
[2016-10-15] MEDS: DOCUSATE SODIUM 250 MG CAPSULE PO SCH (09:32)
[2016-10-15] MEDS: SENNA 8.6 MG TABLET PO SCH (09:33)
[2016-10-15] MEDS: POLYETHYLENE GLYCOL 3350 17 GM PACKET PO SCH (09:33)
[2016-10-15] MEDS: AZITHROMYCIN INJ 500 MG in SODIUM CHLORIDE 0.9% 250 ML IV SCH (10:19)
[2016-10-15] MEDS: NICOTINE 21 MG PATCH TOP SCH (15:53)
[2016-10-15] MEDS: LORazepam 2 MG/ML SYRINGE IVP PRN (19:51)
[2016-10-15] MEDS: SODIUM CHLORIDE FLUSH 0.9% 10 ML SYRINGE IVP PRN (19:51)
[2016-10-16] MEDS: LORazepam 2 MG/ML SYRINGE IVP PRN (03:07)
[2016-10-16] MEDS: LEVOTHYROXINE 100 MCG VIAL IVP SCH (06:38)
[2016-10-16] MEDS: PANTOPRAZOLE 40 MG VIAL IVP SCH (06:38)
[2016-10-16] MEDS: SODIUM CHLORIDE FLUSH 0.9% 10 ML SYRINGE IVP SCH (06:39)
[2016-10-16] MEDS: D5NS W/20 MEQ KCL 1,000 ML IV SCH (08:03)
--- NOTE | 2016-10-16 08:05 | PROVIDER PROGRESS NOTE ---
Assessment/Plan - Problem List (1) Metabolic encephalopathy Assessment/Plan: present on admission, and slowly resolving. from myxedema coma, low B12. Initial thought was that this was from meningitis but does not appear to be from meningitis still on empiric abx. Will continue abx as he did have pneumonia but discontinue vancomycin which was for meningitis Continues to improve still very sleepy throughout the day but more easily arousible and answering questions more appropriately Repeat TSH this am down to 74.23 from 118 PT recommend SNF Patient to go to SNF in [place] tomorrow morning (2) Myxedema Coma Impression: Present on admission. TSH was 118 down to 74.23 On synthroid IV and improving mentation Switch to PO synthroid 1.6 mcg/kg at discharge recheck TSH in 2 weeks and follow with PCP Qualifiers: Hypothyroidism type: unspecified Qualified Code(s): E03.9 - Hypothyroidism , unspecified (3) Pneumonia Impression: Seen on CXR in evms for AMS. Day #5 of rocephin and azithromycin. blood C&S neg. hypothermic and WBC nml. Off O2 Will de-escalate to Levaquin at discharge Qualifiers: Pneumonia type: due to unspecified organism Laterality: bilateral Lung location: upper lobe of lung Qualified Code(s): J18.9 - Pneumonia, unspecified organism (4) Dysphagia Impression: history of pharyngeal cancer with treatment. suspect aspiration may be a prob. Speech therapy assessment and tx ordered. Patient improving but still has difficulties swallowing secondary to previous history of throat ca but being more alert and having good cough reflex he can tolerate dysphagia diet honey thickened liquids and puree Qualifiers: Dysphagia type: unspecified Qualified Code(s): R13.10 - Dysphagia, unspecified (5) Low vitamin B12 level Impression: Banana bag daily Will continue IM vit b12 after discharge for 4-5 more days then will need monthly IM Vit b12 (6) COPD Impression: Stable ON albuterol as needed Off O2 - Current Meds Current Meds: Current Medications Generic Name Dose Route Start Last Admin Trade Name Freq PRN Reason Stop Dose Admin Albuterol 2.5 mg 10/10/16 17:07 10/15/16 07:40 INH 2.5 mg Q4HR PRN Administration Wheezing Docusate Sodium 250 - 500 mg 10/15/16 09:00 10/15/16 09:32 Colace 250mg Capsule PO Not Given DAILY POOJA Enoxaparin Sodium 40 mg 10/11/16 09:00 10/15/16 09:29 Lovenox SUBQ 40 mg DAILY POOJA Administration Hydromorphone HCl 0.5 mg 10/10/16 20:56 10/13/16 16:14 Dilaudid Inj IVP 0.5 mg Q2HR PRN Administration Pain 8 to 10 Potassium Chloride/Dextrose/Sod Cl 1,000 mls @ 100 mls/hr 10/10/16 18:00 08:03 IV Not Given .Q10H POOJA Ceftriaxone Sodium 2 gm/ 100 mls @ 200 mls/hr 10/11/16 09:00 10/15/16 09:26 Sodium Chloride IV 200 mls/hr DAILY POOJA Administration Azithromycin 500 mg/ Sodium 250 mls @ 250 mls/hr 10/11/16 10:00 10/15/16 10:19 Chloride IV 250 mls/hr DAILY@1000 POOJA Administration Multivitamins 10 ml/ Thiamine 1,011.2 mls @ 100 mls/hr 10/12/16 09:00 10/15/16 09:21 HCl 100 mg/ Folic Acid 1 mg/ IV 100 mls/hr Sodium Chloride DAILY POOJA Administration Levothyroxine Sodium 25 mcg 10/11/16 07:00 10/16/16 06:38 Synthroid Inj IVP 25 mcg QDAC POOJA Administration Lorazepam 2 mg 10/11/16 19:59 10/16/16 03:07 Ativan Inj IVP 2 mg Q30M PRN Administration CIWA>8 Protocol Magnesium Oxide 400 mg 10/13/16 08:00 10/15/16 09:32 Mag Ox PO 400 mg DAILYWM POOJA Administration Nicotine 1 patch 10/15/16 16:00 10/15/16 15:53 Nicoderm TOP 1 patch DAILY POOJA Administration Pantoprazole Sodium 40 mg 10/10/16 18:00 10/16/16 06:38 Protonix IVP 40 mg QDAC POOJA Administration Polyethylene Glycol 17 gm 10/15/16 09:00 10/15/16 09:33 Miralax PO Not Given DAILY POOJA Senna 8.6 - 17.2 mg 10/15/16 09:00 10/15/16 09:33 Senokot PO Not Given DAILY POOJA Sodium Chloride 10 ml 10/10/16 17:07 10/15/16 19:51 Normal Saline Flush 0.9% IVP 20 ml PRN PRN Administration NEEDED PER PROVIDER ORDERS Sodium Chloride 10 ml 10/10/16 22:00 10/16/16 06:39 Normal Saline Flush 0.9% IVP Not Given Q8HR POOJA Ziprasidone 10 mg 10/11/16 19:43 10/11/16 20:02 Geodon Im IM 10 mg Q6H PRN Administration Agitation - Lab Result Lab results reviewed: Yes Fish Bone Diagrams: 10/12/16 05:21 10/15/16 06:00 - EKG Results EKG Interpreted Independently: Yes - Diagnostic Imaging Results Diagnostic Imaging Results: positive: Final report reviewed - Additional Planning Condition/Complexity: Improved My Orders: My Active Orders 10/15/16 09:00 Docusate Sodium 250Mg Capsule [Colace 250Mg Capsule] 250 - 500 mg PO DAILY Polyethylene Glycol 3350 [Miralax] 17 gm PO DAILY Senna [Senokot] 8.6 - 17.2 mg PO DAILY 10/15/16 16:00 Nicotine 21 mg Patch [Nicoderm] 1 patch TOP DAILY Consult/Specialty: PT Plan Discussed with:: Patient Time Spent: 31-60 minutes Subjective - Subjective Patient Reports: Feeling Better (Patient much more awake and alert. He is conversant and following commands. No chest pain, no shortness of breath.) Nursing Reports: No Complaints Objective Vital Signs: Vital Signs - 24 hr 10/15/16 10/15/16 10/15/16 09:00 12:37 17:00 Temperature 36.4 C L 36.2 C L Heart Rate Heart Rate [ 79 74 Brachial] Heart Rate [ 100 Radial] Respiratory 20 24 20 Rate Blood Pressure [Left Brachial artery] Blood Pressure 179/93 H 174/90 H 163/92 H [Right Brachial artery] O2 Saturation 92 94 10/15/16 10/15/16 10/15/16 19:35 21:00 23:45 Temperature 36.5 C 36.7 C Heart Rate 84 Heart Rate [ 88 Brachial] Heart Rate [ 80 Radial] Respiratory 16 18 20 Rate Blood Pressure [Left Brachial artery] Blood Pressure 167/83 H [Right Brachial artery] O2 Saturation 93 93 10/16/16 04:10 Temperature 36.9 C Heart Rate Heart Rate [ Brachial] Heart Rate [ 81 Radial] Respiratory 20 Rate Blood Pressure 143/93 H [Left Brachial artery] Blood Pressure [Right Brachial artery] O2 Saturation 93 Oxygen O2 Source Nasal cannula I&O (Last 24 Hrs): Intake and Output Totals x24h 10/14/16 10/15/16 10/16/16 23:59 23:59 23:59 Intake Total 1999 2233 Output Total 1625 850 Balance 375 1384 General: Alert, Oriented x3, Cooperative, No acute distress HEENT: Atraumatic, PERRLA, EOMI, Mucous membr. moist/pink Neck: Supple, No JVD, No thyromegaly, +2 carotid pulse wo bruit, No LAD Lymphatic: no adenopathy Neuro: Alert, Non Focal, CN 2-12 Grossly Intact, Oriented Times 3 Cardiovascular: Regular rate, Normal S1, Normal S2, No murmurs Respiratory: Chest non-tender, No respiratory distress, Breath sounds nml Abdomen: Normal bowel sounds, Soft, No tenderness, No hepatospenomegaly Extremities: No clubbing, No cyanosis, No edema, Normal pulses, Other (right LE AKA) Skin: No rashes, No breakdown - Results Results: Laboratory Results WBC 8.0 x10^3/uL (4.8-10.8) 10/12/16 05:21 RBC 4.36 10^6/uL (4.70-6.10) L 10/12/16 05:21 Hgb 14.3 g/dL (14.0-18.0) 10/12/16 05:21 Hct 44.9 % (42.0-52.0) 10/12/16 05:21 MCV 103.0 fL (80.0-94.0) H 10/12/16 05:21 MCH 32.8 pg (27.0-31.0) H 10/12/16 05:21 MCHC 31.8 g/dL (32.0-36.0) L 10/12/16 05:21 RDW 17.2 % (12.0-15.0) H 10/12/16 05:21 Plt Count 218 10^3/uL (130-450) 10/12/16 05:21 MPV 7.4 fL (7.4-11.4) 10/12/16 05:21 Neut # 6.7 10^3/uL (1.5-6.6) H 10/12/16 05:21 Lymph # 0.4 10^3/uL (1.5-3.5) L 10/12/16 05:21 Patrick # 0.8 10^3/uL (0.0-1.0) 10/12/16 05:21 Eos # 0.1 10^3/uL (0.0-0.7) 10/12/16 05:21 Baso # 0.1 10^3/uL (0.0-0.1) 10/12/16 05:21 Absolute Nucleated RBC 0.00 x10^3/uL 10/12/16 05:21 Nucleated RBCs 0.0 /100WBC 10/12/16 05:21 PT 9.8 secs (9.9-12.6) L 10/10/16 14:40 INR 0.9 (0.8-1.2) 10/10/16 14:40 APTT 26.1 secs (24.9-33.3) 10/10/16 14:40 VBG pH 7.307 (7.31-7.41) L 10/14/16 05:47 Ionized Calcium 1.16 mmol/L (1.15-1.33) 10/14/16 05:47 Sodium 141 mmol/L (135-145) 10/15/16 06:00 Potassium 4.4 mmol/L (3.5-5.0) 10/15/16 06:00 Chloride 113 mmol/L (101-111) H 10/15/16 06:00 Carbon Dioxide 18 mmol/L (21-32) L 10/15/16 06:00 Anion Gap 10.0 (6-13) 10/15/16 06:00 BUN 6 mg/dL (6-20) 10/15/16 06:00 Creatinine 0.9 mg/dL (0.6-1.2) 10/15/16 06:00 Estimated GFR (MDRD) 84 (>89) L 10/15/16 06:00 Glucose 87 mg/dL (70-100) 10/15/16 06:00 POC Whole Bld Glucose 79 mg/dL (70 - 100) 10/14/16 11:04 Lactic Acid 1.2 mmol/L (0.5-2.2) 10/10/16 23:14 Calcium 8.5 mg/dL (8.5-10.3) 10/15/16 06:00 Ionized Calcium YES 10/14/16 05:47 Phosphorus 2.6 mg/dL (2.5-4.6) 10/12/16 05:21 Magnesium 1.8 mg/dL (1.7-2.8) 10/12/16 05:21 Total Bilirubin 0.5 mg/dL (0.2-1.0) 10/12/16 05:21 AST 13 IU/L (10-42) 10/12/16 05:21 ALT < 10 IU/L (10-60) L 10/12/16 05:21 Alkaline Phosphatase 60 IU/L (42-121) 10/12/16 05:21 Ammonia 9.0 umol/L (7-35) 10/10/16 15:19 Total Creatine Kinase 101 IU/L (22-269) 10/10/16 14:40 CK-MB (CK-2) 5.2 ng/mL (0.6-6.3) 10/10/16 14:40 Troponin I < 0.04 ng/mL (<0.49) 10/10/16 19:45 Total Protein 6.3 g/dL (6.7-8.2) L 10/12/16 05:21 Albumin 2.8 g/dL (3.2-5.5) L 10/12/16 05:21 Globulin 3.5 g/dL (2.1-4.2) 10/12/16 05:21 Albumin/Globulin Ratio 0.8 (1.0-2.2) L 10/12/16 05:21 Lipase 41 U/L (22-51) 10/10/16 14:40 Vitamin B12 177 pg/mL (180-914) L 10/11/16 05:00 Folate 9.96 ng/mL (5.90 - >24.8) 10/11/16 05:00 TSH 74.23 uIU/mL (0.34-5.60) H 10/14/16 05:47 Thyroxine (T4) 3.75 ug/dL (6.09-12.23) L 10/10/16 14:40 Free T3 pg/mL 2.26 pg/mL (2.5-3.9) L 10/10/16 14:40 Cortisol 19.2 ug/dL 10/10/16 14:40 Urine Color YELLOW 10/10/16 15:30 Urine Clarity CLEAR (CLEAR) 10/10/16 15:30 Urine pH 5.5 PH (5.0-7.5) 10/10/16 15:30 Ur Specific [place] 1.025 (1.002-1.030) 10/10/16 15:30 Urine Protein NEGATIVE mg/dL (NEGATIVE) 10/10/16 15:30 Urine Glucose (UA) 100 mg/dL (NEGATIVE) H 10/10/16 15:30 Urine Ketones TRACE mg/dL (NEGATIVE) 10/10/16 15:30 Urine Occult Blood NEGATIVE (NEGATIVE) 10/10/16 15:30 Urine Nitrite NEGATIVE (NEGATIVE) 10/10/16 15:30 Urine Bilirubin NEGATIVE (NEGATIVE) 10/10/16 15:30 Urine Urobilinogen 0.2 (NORMAL) E.U./dL (NORMAL) 10/10/16 15:30 Ur Leukocyte Esterase NEGATIVE (NEGATIVE) 10/10/16 15:30 Ur Microscopic Review NOT INDICATED 10/10/16 15:30 Urine Culture Comments NOT INDICATED 10/10/16 15:30 Last Dose Date 10/13/16 10/13/16 17:04 Last Dose Time 1654 10/13/16 17:04 Vancomycin Trough 16.2 ug/mL (5.0-15.0) H 10/13/16 17:04 Salicylates < 6.0 mg/dL 10/10/16 14:40 Urine Opiates Screen NEGATIVE (NEGATIVE) 10/10/16 15:30 Ur Oxycodone Screen NEGATIVE (NEGATIVE) 10/10/16 15:30 Urine Methadone Screen NEGATIVE (NEGATIVE) 10/10/16 15:30 Ur Propoxyphene Screen NEGATIVE (NEGATIVE) 10/10/16 15:30 Acetaminophen < 10 ug/mL (10-30) L 10/10/16 14:40 Ur Barbiturates Screen NEGATIVE (NEGATIVE) 10/10/16 15:30 Ur Tricyclics Screen NEGATIVE (NEGATIVE) 10/10/16 15:30 Ur Phencyclidine Scrn NEGATIVE (NEGATIVE) 10/10/16 15:30 Ur Amphetamine Screen NEGATIVE (NEGATIVE) 10/10/16 15:30 U Methamphetamines Scrn NEGATIVE (NEGATIVE) 10/10/16 15:30 U Benzodiazepines Scrn NEGATIVE (NEGATIVE) 10/10/16 15:30 Urine Cocaine Screen NEGATIVE (NEGATIVE) 10/10/16 15:30 U Cannabinoids Screen POSITIVE (NEGATIVE) H 10/10/16 15:30 Ethyl Alcohol < 5.0 mg/dL 10/10/16 14:40 - Procedures Procedures: Procedures REPLACE GASTROSTOMY TUBE (03/14/13)
[2016-10-16] MEDS: POLYETHYLENE GLYCOL 3350 17 GM PACKET PO SCH (08:08)
[2016-10-16] MEDS: MAGNESIUM OXIDE 400 MG TABLET PO SCH (08:08)
[2016-10-16] MEDS: DOCUSATE SODIUM 250 MG CAPSULE PO SCH (08:09)
[2016-10-16] MEDS: SENNA 8.6 MG TABLET PO SCH (08:09)
[2016-10-16] MEDS: NICOTINE 21 MG PATCH TOP SCH (08:10)
[2016-10-16] MEDS: ENOXAPARIN 40 MG/0.4 ML SYRINGE SUBQ SCH (08:10)
[2016-10-16 08:40] VITALS: BP 173/81
--- NOTE | 2016-10-16 14:34 | DISCHARGE SUMMARY ---
DATE OF ADMISSION: 10/10/2016 DATE OF DISCHARGE: 10/16/2016 PRIMARY CARE PHYSICIAN: PAULA Willoughby. DISCHARGING PHYSICIAN: Alphonso Doan MD. DESTINATION OF DISCHARGE: [place] at [facility] for subacute rehabilitation. DISCHARGE DIAGNOSES 1. Metabolic encephalopathy. 2. Myxedema coma. 3. Hypothyroidism. 4. Community acquired pneumonia. 5. Dysphagia. 6. Vitamin B12 deficiency. 7. Chronic obstructive pulmonary disease. 8. History of tonsillar cancer. 9. Depression. 10. Anxiety. 11. Tobacco abuse. 12. Gastroesophageal reflux disease. DISCHARGE MEDICATIONS 1. Levothyroxine 75 mcg p.o. daily. 2. Levaquin 500 mg p.o. daily x2 days. 3. Nicoderm 21 mcg patch topically daily. 4. Spiriva 18 mcg inhaled daily. 5. Albuterol 2.5 mg nebulizer inhaled q.4h. p.r.n. for dyspnea or wheezing. 6. Celexa 20 mg p.o. daily. 7. Gabapentin 600 mg p.o. b.i.d. 8. Omeprazole 20 mg p.o. daily. 9. Ibuprofen 400 mg p.o. daily p.r.n. for pain. HOSPITAL COURSE: The patient is a 66-year-old gentleman with a past medical history significant for p eripheral vascular disease status post right [id number] amputation, COPD, history of tonsillar ca ncer status post treatment, depression, anxiety, hyperlipidemia, GERD, and hypothyroidism who present ed to the emergency department after being found with altered mental status. The patient was heard sc reaming and yelling and found nonresponsive at home by his neighbors who then called 911. The patient was brought into the emergency room by EMS. On presentation to the emergency department, the patient was very minimally responsive, but was protecting his airway. The patient did not have any leukocyto sis. He did not have any significant electrolyte abnormalities. Urine drug screen was only positive f or cannabinoids. The patient had a normal troponin. His ammonia level was normal. There was some susp icion that the patient may have meningitis, but the emergency room physician was unsuccessful in tryi ng to do a spinal tap. The patient was afebrile and otherwise had normal vital signs. His lab work fi [facility] did reveal that he had a TSH of 118 and this made the hospitalist physician suspicious for poss ible myxedema coma from hypothyroidism. The patient also was found to have an upper lobe infiltrate o n the chest x-ray, which could also have contributed to his altered mental status. The patient's CT h ead was negative. The patient was admitted and placed on IV Synthroid and IV antibiotics for treatmen t of community-acquired pneumonia. The patient's further workup also revealed that he had slight B12 deficiency as well. The patient was given B12 supplementation with intramuscular B12. The patient was very slow to improve, but day by day became more alert and by day 5 of hospitalization was alert deborah ugh that he was able to pass a swallow evaluation to where he could eat pureed and honey nectar-thick food. The patient did have some residual effects from his throat cancer treatment and will need furt her speech evaluation going forward. The patient was close to his normal baseline mental status by th e time of discharge. He did become slightly agitated prior to discharge, as he wanted to smoke and he was given a nicotine patch. The patient was discharged to a residential facility where he will n eed further physical therapy, occupational therapy, and speech therapy treatment. The patient was dis charged to [place] at [facility] nursing [facility] in [place], which is closer to his family. PHYSICAL EXAMINATION AT DISCHARGE VITAL SIGNS: Temperature is 36.3, heart rate 80, blood pressure 173/81, respiratory rate 20, O2 satur ation 92% on 2 liters. GENERAL: The patient is alert, able to answer all of my questions appropriately. HEENT: Pupils are equal and reactive to light. Extraocular muscles are intact. Mucous membranes are m oist. There is no conjunctival pallor or scleral icterus noted. NECK: Supple. No thyromegaly, no JVD. Trachea is midline. LYMPH NODES: There is no cervical or axillary lymphadenopathy noted. CARDIOVASCULAR: S1, S2, regular rate and rhythm. No murmurs, rubs, or gallops. LUNGS: Clear to auscultation bilaterally. No wheezes, rhonchi, or crackles. ABDOMEN: Soft, nontender, nondistended. Bowel sounds are present in all 4 quadrants. EXTREMITIES: There is no lower extremity edema. Peripheral pulses are palpable. There is no cyanosis or clubbing. The patient does have right [id number] amputation. SKIN: No skin rashes, lesions, cellulitis, or abscesses. NEUROLOGIC: The patient is alert and oriented x2. Cranial nerves 2 through 12 grossly intact. Strengt h is grossly normal. Sensations are intact. LABORATORY: WBC 8.0, hemoglobin 14.3, hematocrit 44.9, platelet count of 218. INR 0.9, ionized calciu m 1.16. Sodium 141, potassium 4.4, chloride 113, carbon dioxide 18, BUN 6, creatinine 0.9, glucose 87 , calcium 8.5. TSH 74.3. UA negative. Urine tox screen positive for cannabinoids, negative for alcoho l, negative for Tylenol, negative for salicylates. IMAGING CT head, impression: Normal CT head. Chest x-ray: Patchy upper lobe infiltrates superimposed upon emphysema. Echocardiogram, impression: Overall left ventricular systolic function is normal, EF of 60% to 65%, m ild right ventricular enlargement. Trace to mild aortic regurgitation, mild mitral regurgitation, sev erely abnormal right heart pressures. EKG, impression: Sinus rhythm. No ST elevations, no ischemic changes. FOLLOWUP/RECOMMENDATIONS: The patient is being discharged to a residential facility, [facility], where he will receive physical therapy, occupational therapy, and speech therapy. The patient will be continued on a maintenance dose of Synthroid orally to treat his hypothyroidism and continue on 2 more days of oral antibiotics to complete treatment for pneumonia. The patient was in stable co ndition at the time of discharge. TIME SPENT ON DISCHARGE: Greater than 30 minutes were spent on discharge. JOB #: [id number] EXT JOB #:[id number]
== END 2016-10-16 09:15 | DRG 70 ==
LOC: EDUNIT# → ED 13:59 → ICU 17:07 → MS 10-12 13:01
PROVIDERS: ADMIT Internal Medicine; ATTEND Internal Medicine
DX: E16.2 Hypoglycemia, unspecified (principal); R41.0 Disorientation, unspecified; G93.41 Metabolic encephalopathy; E03.5 Myxedema coma; J18.9 Pneumonia, unspecified organism; L98.499 Non-pressure chronic ulcer of skin of other sites with unspecified severity; J44.0 Chronic obstructive pulmonary disease with (acute) lower respiratory infection; Z68.1 Body mass index [BMI] 19.9 or less, adult; E03.9 Hypothyroidism, unspecified; F17.200 Nicotine dependence, unspecified, uncomplicated; E86.0 Dehydration; E78.5 Hyperlipidemia, unspecified; I73.9 Peripheral vascular disease, unspecified; Z89.511 Acquired absence of right leg below knee; R13.10 Dysphagia, unspecified; E53.8 Deficiency of other specified B group vitamins; F32.9 Major depressive disorder, single episode, unspecified; F41.9 Anxiety disorder, unspecified; K21.9 Gastro-esophageal reflux disease without esophagitis; I10 Essential (primary) hypertension; R63.6 Underweight; Z72.0 Tobacco use; Z78.1 Physical restraint status; Z85.818 Personal history of malignant neoplasm of other sites of lip, oral cavity, and pharynx; Z89.611 Acquired absence of right leg above knee; Z79.1 Long term (current) use of non-steroidal anti-inflammatories (NSAID); Z79.899 Other long term (current) drug therapy; Z91.14 Patient's other noncompliance with medication regimen
CPT/HCPCS: 36415; 51701; 62270; 70450; 71010; 80048; 80053; 80306; 80307; 80320; 80329; 81001; 81003; 82140; 82310; 82330; 82533; 82550; 82553; 82607; 82746; 82945; 83605; 83690; 83735; 84100; 84157; 84436; 84443; 84481; 84484; 85025; 85610; 85730; 87040; 87070; 87086; 87150; 87205; 89051; 93005; 93010; 93306; 94640; 96361; 96365; 96367; 96372; 96375; 99285; 99291

== ENCOUNTER 2016-10-16 09:08 | Outpatient (CLI) | payer MEDICARE, MEDICAID | END 2016-10-16 23:59 | LOC: EMS 09:08 | PROVIDERS: ATTEND Surgery | DX: E03.5 Myxedema coma (principal) | CPT/HCPCS: A0170; A0425; A0428 ==

== ENCOUNTER 2016-12-14 09:30 | Outpatient (CLI) | payer MEDICARE, MEDICAID ==
[2016-12-14 19:17] LABS: THYROID STIMULATING HORMONE 4.17 uIU/mL (0.34-5.60)
== END 2016-12-14 09:31 | disposition home or self-care (01) ==
LOC: LAB.S 09:30
PROVIDERS: ATTEND Nurse Practitioner Family
DX: E03.9 Hypothyroidism, unspecified (principal); G40.209 Localization-related (focal) (partial) symptomatic epilepsy and epileptic syndromes with complex partial seizures, not intractable, without status epilepticus
CPT/HCPCS: 36415; 80185; 84439; 84443; 84481

== ENCOUNTER 2017-01-20 15:15 | Outpatient (CLI) | payer MEDICARE, MEDICAID ==
[2017-01-20 19:32] LABS: THYROID STIMULATING HORMONE > 49.50 uIU/mL (0.34-5.60)
== END 2017-01-20 15:16 | disposition home or self-care (01) ==
LOC: LAB.F 15:15
PROVIDERS: ATTEND Nurse Practitioner Family
DX: G40.209 Localization-related (focal) (partial) symptomatic epilepsy and epileptic syndromes with complex partial seizures, not intractable, without status epilepticus (principal); E03.9 Hypothyroidism, unspecified
CPT/HCPCS: 36415; 80185; 84439; 84443; 84481

== ENCOUNTER 2017-01-28 09:57 | Outpatient (CLI) | payer MEDICARE, MEDICAID | END 2017-01-28 09:58 | disposition short-term general hospital (02) | LOC: EMS 09:57 | PROVIDERS: ATTEND Surgery | DX: R20.0 Anesthesia of skin (principal); R06.00 Dyspnea, unspecified | CPT/HCPCS: A0425; A0429 ==